=== PATIENT | female | born 1930 | race Caucasian/White ===

== ENCOUNTER 2020-06-21 15:54 | Inpatient (IN) ==
[2020-06-21] MEDS ORDERED: ALBUTEROL HFA 8 GM INHALER INH ONE (16:28)
[2020-06-21] MEDS ORDERED: guaiFENesin 600 MG TABCR PO STA (16:28)
[2020-06-21] MEDS ORDERED: SODIUM CHLORIDE 0.9% 500 ML IV ONE (16:31)
--- NOTE | 2020-06-21 16:52 | XRay Report ---
XR chest 1V portable CLINICAL HISTORY: Chest Pain COMPARISON STUDY: No previous studies for comparison. FINDINGS: Lung volumes are normal. There is no pneumothorax. There is a trace left pleural effusion. Left basilar opacity favors atelectasis. Note is made of moderate cardiomegaly. There is interstitial thickening. Old right rib fracture is incidentally noted. A right hilar prominence. IMPRESSION: 1. Cardiomegaly with interstitial thickening suggestive of pulmonary edema. 2. Trace left pleural effusion with left basilar opacity that favors atelectasis. An infectious proce ss is considered less likely. Radiographic follow-up is recommended. 3. Mild right hilar prominence which is likely due to pulmonary vessels. This can be assessed on foll ow-up chest radiograph. ACT 112: Negative or not required by law. Electronically signed by: Quique Martin M.D. 06/21/2020 4:51 PM
[2020-06-21 16:58] LABS: Basophils # (auto) 0.02 K/uL (0-0.2); Basophils % (auto) 0.2 %; Eosinophils # (auto) 0.14 K/uL (0-0.5); Eosinophils % (auto) 1.3 %; Hematocrit (blood only) 39.8 % (37-47); Hemoglobin 12.9 g/dL (12.0-16.0); Immature Granulocytes # (auto) 0.03 K/uL (0.00-0.02); Immature Granulocytes % (auto) 0.3 %; Lymphocytes # (auto) 1.46 K/uL (1.2-3.4); Lymphocytes % (auto) 13.4 %; Mean Corpuscular Hemoglobin 29.7 pg (25-34); Mean Corpuscular Hgb Conc 32.4 g/dL (32-36); Mean Corpuscular Volume 91.5 fL (80-100); Mean Platelet Volume 10.3 fL (7.4-10.4); Monocytes # (auto) 1.26 K/uL (0.11-0.59); Monocytes % (auto) 11.6 %; Neutrophils # (auto) 7.98 K/uL (1.4-6.5); Neutrophils % (auto) 73.2 %; Platelet Count 255 K/uL (130-400); RDW Coefficient of Variation 14.5 % (11.5-14.5); Red Blood Count 4.35 M/uL (4.2-5.4); White Blood Count 10.89 K/uL (4.8-10.8)
[2020-06-21 17:16] LABS: Alanine Aminotransferase 99 U/L (12-78); Albumin Level 3.2 gm/dl (3.4-5.0); Aspartate Aminotransferase 44 U/L (15-37); BUN Creatinine Ratio 23.1 (10-20); Bilirubin Direct 0.2 mg/dl (0-0.2); Blood Urea Nitrogen 32 mg/dl (7-18); Calcium 8.6 mg/dl (8.5-10.1); Carbon Dioxide 26 mmol/L (21-32); Chloride 113 mmol/L (98-107); Creatinine Clr Calc Pharmacy 25.4 ml/min; Est GFR (African American) 39.5 ml/min; Est GFR (Non-African American) 34.1 ml/min; Glucose 120 mg/dl (70-99); Lipase 78 U/L (73-393); Magnesium 2.3 mg/dl (1.8-2.4); Potassium 4.8 mmol/L (3.5-5.1); Sodium 143 mmol/L (136-145)
[2020-06-21 17:33] LABS: Prothrombin Time 10.6 Seconds (9.0-12.0)
[2020-06-21 17:41] LABS: Albumin Globulin Ratio 1.3 (0.9-2); Alkaline Phosphatase 107 U/L (45-117); Bilirubin,Total 0.5 mg/dl (0.2-1); Globulin 2.5 gm/dl (2.5-4.0); NT Pro B Type Natriuretic Pept > 35000 pg/ml (0-1800); Phosphorus 3.7 mg/dl (2.5-4.9); Total Protein 5.7 gm/dl (6.4-8.2); Troponin I 0.104 ng/ml (0-0.045)
--- NOTE | 2020-06-21 18:43 | Emergency Department Note ---
Impression & Plan CHF (congestive heart failure), Pulmonary edema, Elevated troponin, Transaminitis ED Provider Note NAME: CARMELA RUSS AGE: 89 SEX: F ARRIVES VIA: Walk-In INFORMANT: Patient, ED PROVIDER(S): Todd Wright MD CHIEF COMPLAINT: shortness of breath PLAN: Disposition: Admit MEDICAL DECISION MAKING: The patient is a pleasant 89-year-old woman who presents to the emergency department for worsening shortness of breath and cough over the past couple of weeks seen at [facility] and referred to the emergency department for evaluation. The patient reports that she has not followed with her doctor in a number of years and does not take medications on a regular basis. She denies any objective fevers, nausea, vomiting. She does report some slightly loose stool but no overt diarrhea. She denies any known COVID-19 exposures. On arrival the patient is mildly dyspneic but no acute distress, afebrile with heart in the 100s and vital signs otherwise stable. Her oxygen saturation is >93% on room air with normal respiratory effort. She has scant bilateral lower extremity edema which she does admit is new. EKG demonstrates right bundle branch block without overt acute ischemia. Chest x-ray demonstrates interstitial thickening that is nonspecific. There is trace left pleural effusion and basilar opacity that is nonspecific. WBC 10.8K, nonspecific. H/H and platelets within normal limits. Chemistry without metabolic acidosis. Creatinine 1.3 with BUN/creatinine > 20. Electrolytes without significant abnormality. LFTs slightly elevated AST and ALT 44 and 99, respectively. Troponin is elevated at 0.014. BNP is sign ificantly elevated >35K. COVID-19 PCR was negative. CTA of the chest was negative for PE but does show moderate pulmonary edema and small bilateral pleural effusions. I did perform a limited bedside cardiac ultrasound which did demonstrate evidence of systolic heart failure with dilated LV and moderately reduced EF per MAPSE 7.0mm. Of note, the patient did appear slightly more dyspneic following CT likely related to lying supine for the study despite being placed on oxygen to help her tolerate lying flat. Thus, will trial BiPAP given the patient's increased dyspnea likely related to pulmonary edema. Patient was ordered for Lasix and monitoring of urine output. Patient is agreement with plan for admission for further evaluation and management of new onset CHF. Case was discussed with [place]. Beckett, [facility] [place], who will evaluate the patient for admission. Triage Nursing notes reviewed and agree them. Prior medical records reviewed Vital Signs: reviewed and remarkable for tachycardia. Differential diagnosis: Reactive airway disease, pneumonia, pneumothorax, COPD, CHF, infections, cardiac ischemia, pulmonary embolism, musculoskeletal, gastrointestinal, as well as other pathologies. ER treatment provided: See below. Diagnostics interpreted by me: ECG: Sinus tachycardia, 112 bpm, occasional PVCs, right bundle branch block, no overt ST elevation or depression, QTC 548, QRS 198. Cardiac Monitoring: An order for continuous cardiac monitoring was placed and demonstrated Sinus tachycardia, 112 bpm, occasional PVCs. Laboratory studies: See below Imaging studies: See below Consultation(s): Case was discussed with Dr. Beckett, [facility] [place], who will evaluate the patient for admission. HPI: The patient is a pleasant 89-year-old woman who presents to the emergency department for worsening shortness of breath and cough over the past couple of weeks seen at [facility] and referred to the emergency department for evaluation. The patient reports that she has not followed with her doctor in a number of years and does not take medications on a regular basis. She denies any objective fevers, nausea, vomiting. She does report some slightly loose stool but no overt diarrhea. She denies any known COVID-19 exposures. ROS: See above HPI for pertinent positives & negatives. A total of 10 systems reviewed and were otherwise negative. PAST MEDICAL HISTORY:See Below PAST SURGICAL HISTORY:See Below FAMILY HISTORY:See Below SOCIAL HISTORY:See Below HOME MEDICATIONS:See Below ALLERGIES:See Below VITALS:See Below PHYSICAL EXAMINATION: GENERAL: Awake, alert, fatigued-appearing, in no distress HENT: Normocephalic, atraumatic. Oropharynx with dry mucous membranes and otherwise unremarkable. EYES: Normal conjunctiva. Sclera non-icteric. NECK: Supple. No nuchal rigidity. FROM. No JVD. RESPIRATORY: Diminished breath sounds at the bases with scant intermittent wheeze. CARDIAC: Tachycardic rate, normal rhythm. Extremities warm and well perfused. Pulses equal. ABDOMEN: Soft, non-distended. No tenderness to palpation. No rebound or guard ing. No masses. RECTAL: Deferred. MUSCULOSKELETAL: Chest examination reveals no tenderness. The back is symmetrical on inspection without obvious abnormality. There is no CVA tenderness to palpation. No joint edema. LOWER EXTREMITIES: Calves are equal size bilaterally and non-tender. Scant BLE edema. No discoloration. NEURO: Normal sensorium. No sensory or motor deficits noted. SKIN: No rash or jaundice noted. ED COURSE: Critical Care: I have personally spent greater than 35 minutes of critical care time in the direct management of this patient. This includes bedside care, interpretation of diagnostic studies, and testing, discussion with consultants, patient, and family members, and other required patient management activities. This 35 minutes is in excess of all separately billable procedures. Todd Wright MD Past Med/Surg History Medical History No active medical problems Family History Other Heart disease Social History Smoking Status: Never smoker Hx Alcohol Use: No Hx Substance Use: No Preferred Language: Salvadorean Communication Ability: Effective Rn Case Management Required: No Beliefs That Will Affect Care: None Current Living Situation: Alone Feels Safe at Home: Yes Safety Concerns: Feels Safe At This Time Assistive Devices: Glasses Allergies Allergies Allergy/AdvReac Type Severity Reaction Status Date / Time No Known Allergies Verified 06/21/20 17:37 Home Meds Home Medications Medication Instructions Recorded Confirmed No Known Home Medications 06/21/20 06/21/20 Results & Data (ED) Vital Signs Vital Signs - 24 hr 06/21/20 16:02 06/21/20 16:31 06/21/20 16:46 Temperature 36.7 C Temperature Source Temporal Artery Scan Pulse Rate 116 H Pulse Rate [Right Finger] Pulse Rate from SpO2 Sensor Respiratory Rate 20 Respiratory Effort / Characteristics Non-Labored Non-Labored Spontaneous Respiratory Depth Normal Normal Respiratory Pattern Regular Blood Pressure 139/81 Blood Pressure [Left Arm] Blood Pressure Mean 100 Blood Pressure Mean [Left Arm] Blood Pressure Position [Left Arm] Pulse Oximetry 93 93 Oxygen Delivery Method Room Air Room Air Room Air Fraction of Inspired Oxygen Sepsis Recent Fever Within 48 Hours No Sepsis New/Unexplained Change in Mental Status No Sepsis Action Taken by Nursing No Action Required 06/21/20 17:02 06/21/20 17:15 06/21/20 17:30 Temperature Temperature Source Pulse Rate 111 H 111 H 110 H Pulse Rate [Right Finger] Pulse Rate from SpO2 Sensor 107 H 112 H 109 H Respiratory Rate 26 H 34 H 19 Respiratory Effort / Characteristics Respiratory Depth Respiratory Pattern Blood Pressure Blood Pressure [Left Arm] Blood Pressure Mean Blood Pressure Mean [Left Arm] Blood Pressure Position [Left Arm] Pulse Oximetry 91 94 94 Oxygen Delivery Method Fraction of Inspired Oxygen Sepsis Recent Fever Within 48 Hours Sepsis New/Unexplained Change in Mental Status Sepsis Action Taken by Nursing 06/21/20 17:45 06/21/20 17:59 06/21/20 18:00 Temperature Temperature Source Pulse Rate 108 H 112 H 110 H Pulse Rate [Right Finger] 109 H Pulse Rate from SpO2 Sensor 109 H 112 H 112 H Respiratory Rate 31 H 27 H 34 H Respiratory Effort / Characteristics Non-Labored Spontaneous Respiratory Depth Normal Respiratory Pattern Regular Blood Pressure 166/103 H Blood Pressure [Left Arm] 166/103 H Blood Pressure Mean 124 Blood Pressure Mean [Left Arm] 124 Blood Pressure Position [Left Arm] Sitting Pulse Oximetry 93 95 93 Oxygen Delivery Method Room Air Fraction of Inspired Oxygen Sepsis Recent Fever Within 48 Hours Sepsis New/Unexplained Change in Mental Status Sepsis Action Taken by Nursing 06/21/20 18:15 06/21/20 18:30 06/21/20 18:45 Temperature Temperature Source Pulse Rate 108 H 109 H 110 H Pulse Rate [Right Finger] Pulse Rate from SpO2 Sensor 108 H 109 H 111 H Respiratory Rate 35 H 34 H 30 H Respiratory Effort / Characteristics Respiratory Depth Respiratory Pattern Blood Pressure Blood Pressure [Left Arm] Blood Pressure Mean Blood Pressure Mean [Left Arm] Blood Pressure Position [Left Arm] Pulse Oximetry 96 92 94 Oxygen Delivery Method Fraction of Inspired Oxygen Sepsis Recent Fever Within 48 Hours Sepsis New/Unexplained Change in Mental Status Sepsis Action Taken by Nursing 06/21/20 19:00 06/21/20 19:26 06/21/20 19:28 Temperature Temperature Source Pulse Rate 112 H 110 H Pulse Rate [Right Finger] Pulse Rate from SpO2 Sensor 111 H 109 H 111 H Respiratory Rate 29 H 37 H Respiratory Effort / Characteristics Respiratory Depth Respiratory Pattern Blood Pressure 131/93 Blood Pressure [Left Arm] Blood Pressure Mean 105 Blood Pressure Mean [Left Arm] Blood Pressure Position [Left Arm] Pulse Oximetry 94 99 93 Oxygen Delivery Method Fraction of Inspired Oxygen Sepsis Recent Fever Within 48 Hours Sepsis New/Unexplained Change in Mental Status Sepsis Action Taken by Nursing 06/21/20 19:30 06/21/20 19:31 06/21/20 19:45 Temperature Temperature Source Pulse Rate 109 H 111 H 120 H Pulse Rate [Right Finger] Pulse Rate from SpO2 Sensor 110 H 112 H 120 H Respiratory Rate 40 H 29 H 38 H Respiratory Effort / Characteristics Respiratory Depth Respiratory Pattern Blood Pressure 146/101 H 150/95 H Blood Pressure [Left Arm] Blood Pressure Mean 116 113 Blood Pressure Mean [Left Arm] Blood Pressure Position [Left Arm] Pulse Oximetry 90 92 91 Oxygen Delivery Method Fraction of Inspired Oxygen Sepsis Recent Fever Within 48 Hours Sepsis New/Unexplained Change in Mental Status Sepsis Action Taken by Nursing 06/21/20 19:46 06/21/20 20:00 06/21/20 20:15 Temperature Temperature Source Pulse Rate 117 H 112 H 114 H Pulse Rate [Right Finger] Pulse Rate from SpO2 Sensor 118 H 110 H 108 H Respiratory Rate 35 H 38 H 37 H Respiratory Effort / Characteristics Respiratory Depth Respiratory Pattern Blood Pressure 170/114 H 164/112 H Blood Pressure [Left Arm] Blood Pressure Mean 132 129 Blood Pressure Mean [Left Arm] Blood Pressure Position [Left Arm] Pulse Oximetry 95 97 95 Oxygen Delivery Method Fraction of Inspired Oxygen Sepsis Recent Fever Within 48 Hours Sepsis New/Unexplained Change in Mental Status Sepsis Action Taken by Nursing 06/21/20 20:16 06/21/20 20:30 06/21/20 20:45 Temperature Temperature Source Pulse Rate 111 H 114 H 111 H Pulse Rate [Right Finger] Pulse Rate from SpO2 Sensor 113 H 111 H Respiratory Rate 25 H 37 H 36 H Respiratory Effort / Characteristics Respiratory Depth Respiratory Pattern Blood Pressure 151/92 H 151/92 H Blood Pressure [Left Arm] Blood Pressure Mean 111 111 Blood Pressure Mean [Left Arm] Blood Pressure Position [Left Arm] Pulse Oximetry 96 97 Oxygen Delivery Method Fraction of Inspired Oxygen Sepsis Recent Fever Within 48 Hours Sepsis New/Unexplained Change in Mental Status Sepsis Action Taken by Nursing 06/21/20 20:46 06/21/20 20:49 06/21/20 21:00 Temperature Temperature Source Pulse Rate 111 H 111 H 110 H Pulse Rate [Right Finger] Pulse Rate from SpO2 Sensor 110 H 110 H Respiratory Rate 38 H 31 H 33 H Respiratory Effort / Characteristics Spontaneous Respiratory Depth Normal Respiratory Pattern Tachypnea Blood Pressure 158/106 H Blood Pressure [Left Arm] Blood Pressure Mean 123 Blood Pressure Mean [Left Arm] Blood Pressure Position [Left Arm] Pulse Oximetry 98 98 98 Oxygen Delivery Method Fraction of Inspired Oxygen 30 Sepsis Recent Fever Within 48 Hours Sepsis New/Unexplained Change in Mental Status Sepsis Action Taken by Nursing 06/21/20 21:01 06/21/20 21:15 06/21/20 21:16 Temperature Temperature Source Pulse Rate 110 H 110 H 105 H Pulse Rate [Right Finger] Pulse Rate from SpO2 Sensor 113 H 110 H 109 H Respiratory Rate 33 H 32 H 33 H Respiratory Effort / Characteristics Respiratory Depth Respiratory Pattern Blood Pressure 166/105 H Blood Pressure [Left Arm] Blood Pressure Mean 125 Blood Pressure Mean [Left Arm] Blood Pressure Position [Left Arm] Pulse Oximetry 98 98 97 Oxygen Delivery Method Fraction of Inspired Oxygen Sepsis Recent Fever Within 48 Hours Sepsis New/Unexplained Change in Mental Status Sepsis Action Taken by Nursing 06/21/20 21:30 06/21/20 21:31 06/21/20 21:45 Temperature Temperature Source Pulse Rate 112 H 112 H 114 H Pulse Rate [Right Finger] Pulse Rate from SpO2 Sensor 113 H 112 H 112 H Respiratory Rate 28 H 31 H 29 H Respiratory Effort / Characteristics Respiratory Depth Respiratory Pattern Blood Pressure 167/103 H 163/107 H Blood Pressure [Left Arm] Blood Pressure Mean 124 125 Blood Pressure Mean [Left Arm] Blood Pressure Position [Left Arm] Pulse Oximetry 99 99 98 Oxygen Delivery Method Fraction of Inspired Oxygen Sepsis Recent Fever Within 48 Hours Sepsis New/Unexplained Change in Mental Status Sepsis Action Taken by Nursing 06/21/20 22:00 06/21/20 22:15 06/21/20 22:16 Temperature Temperature Source Pulse Rate 105 H 101 H 101 H Pulse Rate [Right Finger] Pulse Rate from SpO2 Sensor 106 H 102 H 101 H Respiratory Rate 28 H 30 H 31 H Respiratory Effort / Characteristics Respiratory Depth Respiratory Pattern Blood Pressure 155/93 H 135/98 Blood Pressure [Left Arm] Blood Pressure Mean 113 110 Blood Pressure Mean [Left Arm] Blood Pressure Position [Left Arm] Pulse Oximetry 98 97 97 Oxygen Delivery Method Fraction of Inspired Oxygen Sepsis Recent Fever Within 48 Hours Sepsis New/Unexplained Change in Mental Status Sepsis Action Taken by Nursing 06/21/20 22:30 06/21/20 22:31 06/21/20 22:45 Temperature Temperature Source Pulse Rate 99 H 101 H 94 H Pulse Rate [Right Finger] Pulse Rate from SpO2 Sensor 99 H 101 H 93 H Respiratory Rate 30 H 30 H 24 Respiratory Effort / Characteristics Respiratory Depth Respiratory Pattern Blood Pressure 135/91 124/72 Blood Pressure [Left Arm] Blood Pressure Mean 105 89 Blood Pressure Mean [Left Arm] Blood Pressure Position [Left Arm] Pulse Oximetry 97 98 97 Oxygen Delivery Method Fraction of Inspired Oxygen Sepsis Recent Fever Within 48 Hours Sepsis New/Unexplained Change in Mental Status Sepsis Action Taken by Nursing 06/21/20 22:46 06/21/20 23:00 06/21/20 23:01 Temperature Temperature Source Pulse Rate 94 H 92 H 93 H Pulse Rate [Right Finger] Pulse Rate from SpO2 Sensor 94 H 92 H 93 H Respiratory Rate 24 25 H 24 Respiratory Effort / Characteristics Respiratory Depth Respiratory Pattern Blood Pressure 131/72 Blood Pressure [Left Arm] Blood Pressure Mean 91 Blood Pressure Mean [Left Arm] Blood Pressure Position [Left Arm] Pulse Oximetry 97 98 97 Oxygen Delivery Method Fraction of Inspired Oxygen Sepsis Recent Fever Within 48 Hours Sepsis New/Unexplained Change in Mental Status Sepsis Action Taken by Nursing 06/21/20 23:15 06/21/20 23:16 06/21/20 23:30 Temperature Temperature Source Pulse Rate 90 90 88 Pulse Rate [Right Finger] Pulse Rate from SpO2 Sensor 89 90 88 Respiratory Rate 22 23 22 Respiratory Effort / Characteristics Respiratory Depth Respiratory Pattern Blood Pressure 126/80 115/78 Blood Pressure [Left Arm] Blood Pressure Mean 95 90 Blood Pressure Mean [Left Arm] Blood Pressure Position [Left Arm] Pulse Oximetry 98 97 98 Oxygen Delivery Method Fraction of Inspired Oxygen Sepsis Recent Fever Within 48 Hours Sepsis New/Unexplained Change in Mental Status Sepsis Action Taken by Nursing Laboratory Data Attestation: I reviewed the patient's lab results. Result diagrams: 06/21/20 16:50 06/21/20 16:50 Lab Results 06/21/20 06/21/20 06/21/20 Range/Units 16:50 16:50 16:54 WBC 10.89 H (4.8-10.8) K/uL RBC 4.35 (4.2-5.4) M/uL Hgb 12.9 (12.0-16.0) g/dL Hct 39.8 (37-47) % MCV 91.5 (80-100) fL MCH 29.7 (25-34) pg MCHC 32.4 (32-36) g/dL RDW Std Deviation 49.0 H (36.4-46.3) fL RDW Coeff of Aggie 14.5 (11.5-14.5) % Plt Count 255 (130-400) K/uL MPV 10.3 (7.4-10.4) fL Immature Gran % (Auto) 0.3 % Neut % (Auto) 73.2 % Lymph % (Auto) 13.4 % [place] % (Auto) 11.6 % Eos % (Auto) 1.3 % Baso % (Auto) 0.2 % Neut # (Auto) 7.98 H (1.4-6.5) K/uL Lymph # (Auto) 1.46 (1.2-3.4) K/uL [place] # (Auto) 1.26 H (0.11-0.59) K/uL Eos # (Auto) 0.14 (0-0.5) K/uL Baso # (Auto) 0.02 (0-0.2) K/uL Immature Gran # (Auto) 0.03 H (0.00-0.02) K/uL PT (9.0-12.0) Seconds INR (0.9-1.1) Sodium 143 (136-145) mmol/L Potassium 4.8 (3.5-5.1) mmol/L Chloride 113 H (98-107) mmol/L Carbon Dioxide 26 (21-32) mmol/L Anion Gap 4.0 (3-11) BUN 32 H (7-18) mg/dl Creatinine 1.37 H (0.6-1.2) mg/dl Est Cr Clr Drug Dosing 25.4 ml/min Est GFR ( Amer) 39.5 ml/min Est GFR (Non-Af Amer) 34.1 ml/min BUN/Creatinine Ratio 23.1 H (10-20) Glucose 120 H (70-99) mg/dl Calcium 8.6 (8.5-10.1) mg/dl Phosphorus 3.7 (2.5-4.9) mg/dl Magnesium 2.3 (1.8-2.4) mg/dl Total Bilirubin 0.5 (0.2-1) mg/dl Direct Bilirubin 0.2 (0-0.2) mg/dl AST 44 H (15-37) U/L ALT 99 H (12-78) U/L Alkaline Phosphatase 107 (45-117) U/L Troponin I 0.104 H* (0-0.045) ng/ml NT-Pro-B Natriuret Pep > 08244 H (0-1800) pg/ml Total Protein 5.7 L (6.4-8.2) gm/dl Albumin 3.2 L (3.4-5.0) gm/dl Globulin 2.5 (2.5-4.0) gm/dl Albumin/Globulin Ratio 1.3 (0.9-2) Lipase 78 (73-393) U/L TSH 3.300 (0.300-4.500) uIu/ml COVID-19 Eval Order Covid19 at [facility] SARS-CoV-2 (PCR) (Negative) 06/21/20 06/21/20 Range/Units 16:54 17:13 WBC (4.8-10.8) K/uL RBC (4.2-5.4) M/uL Hgb (12.0-16.0) g/dL Hct (37-47) % MCV (80-100) fL MCH (25-34) pg MCHC (32-36) g/dL RDW Std Deviation (36.4-46.3) fL RDW Coeff of Aggie (11.5-14.5) % Plt Count (130-400) K/uL MPV (7.4-10.4) fL Immature Gran % (Auto) % Neut % (Auto) % Lymph % (Auto) % [place] % (Auto) % Eos % (Auto) % Baso % (Auto) % Neut # (Auto) (1.4-6.5) K/uL Lymph # (Auto) (1.2-3.4) K/uL [place] # (Auto) (0.11-0.59) K/uL Eos # (Auto) (0-0.5) K/uL Baso # (Auto) (0-0.2) K/uL Immature Gran # (Auto) (0.00-0.02) K/uL PT 10.6 (9.0-12.0) Seconds INR 1.0 (0.9-1.1) Sodium (136-145) mmol/L Potassium (3.5-5.1) mmol/L Chloride (98-107) mmol/L Carbon Dioxide (21-32) mmol/L Anion Gap (3-11) BUN (7-18) mg/dl Creatinine (0.6-1.2) mg/dl Est Cr Clr Drug Dosing ml/min Est GFR ( Amer) ml/min Est GFR (Non-Af Amer) ml/min BUN/Creatinine Ratio (10-20) Glucose (70-99) mg/dl Calcium (8.5-10.1) mg/dl Phosphorus (2.5-4.9) mg/dl Magnesium (1.8-2.4) mg/dl Total Bilirubin (0.2-1) mg/dl Direct Bilirubin (0-0.2) mg/dl AST (15-37) U/L ALT (12-78) U/L Alkaline Phosphatase (45-117) U/L Troponin I (0-0.045) ng/ml NT-Pro-B Natriuret Pep (0-1800) pg/ml Total Protein (6.4-8.2) gm/dl Albumin (3.4-5.0) gm/dl Globulin (2.5-4.0) gm/dl Albumin/Globulin Ratio (0.9-2) Lipase (73-393) U/L TSH (0.300-4.500) uIu/ml COVID-19 Eval Order SARS-CoV-2 (PCR) NEGATIVE (Negative) Administered Medications Discontinued Medications Albuterol (Albuterol Hfa 8 Gm Inhaler) 2 puffs INH NOW ONE Stop: 06/21/20 16:29 Last Admin: 06/21/20 17:49 Dose: 2 puffs Documented by: [id number] Furosemide (Furosemide 40 Mg/4 Ml Vial) 20 mg IV NOW STA Stop: 06/21/20 20:08 Last Admin: 06/21/20 20:20 Dose: 20 mg Documented by: [id number] Guaifenesin (Guaifenesin 600 Mg Tabcr) 600 mg PO NOW STA Stop: 06/21/20 16:29 Last Admin: 06/21/20 17:50 Dose: 600 mg Documented by: [id number] Sodium Chloride (Nss) 500 mls @ 999 mls/hr IV .Q31M ONE Stop: 06/21/20 17:01 Last Infusion: 06/21/20 19:36 Dose: 0 mls/hr Documented by: [id number] Admin: 06/21/20 17:50 Dose: 999 mls/hr Documented by: [id number] Ioversol (Optiray 350 500ml) 108 ml IV ONCE ONE Stop: 06/21/20 19:22 Last Admin: 06/21/20 19:21 Dose: 108 ml Documented by: [id number] Imaging Data Radiologist's Impression: Chest X-Ray 06/21/20 16:30 XR chest 1V portable CLINICAL HISTORY: Chest Pain COMPARISON STUDY: No previous studies for comparison. FINDINGS: Lung volumes are normal. There is no pneumothorax. There is a trace left pleural effusion. Left basilar opacity favors atelectasis. Note is made of moderate cardiomegaly. There is interstitial thickening. Old right rib fracture is incidentally noted. A right hilar prominence. IMPRESSION: 1. Cardiomegaly with interstitial thickening suggestive of pulmonary edema. 2. Trace left pleural effusion with left basilar opacity that favors atelectasis. An infectious process is considered less likely. Radiographic follow-up is recommended. 3. Mild right hilar prominence which is likely due to pulmonary vessels. This can be assessed on follow-up chest radiograph. ACT 112: Negative or not required by law. Electronically signed by: Quique Martin M.D. 06/21/2020 4:51 PM Chest CTA 06/21/20 18:35 CT ANGIOGRAPHY OF THE CHEST, PULMONARY EMBOLUS PROTOCOL CLINICAL HISTORY: Shortness of breath. Evaluate for pulmonary embolus. COMPARISON STUDY: Chest radiograph performed earlier today. TECHNIQUE: Following IV administration of 108 mL of Optiray, helical axial images of the chest were obtained utilizing the pulmonary embolus protocol. Maximal intensity projections and sagittal and coronal reformats were viewed on an independent 3D workstation. IV contrast was administered without complication. Automated exposure control was utilized for the study. A dose lowering technique was utilized adhering to the principles of ALARA. CT DOSE: 410.08 mGy.cm FINDINGS: No pulmonary emboli are identified. Moderate cardiomegaly is noted. There is mitral annular and aortic valvular calcification. Small left and trace right pleural effusions are noted. Bilateral lower lobe opacities favor atelectasis. There is no pneumothorax. Interlobular septal thickening represents pulmonary edema. There are additional groundglass opacities. Mildly enlarged mediastinal lymph nodes are noted. There is a cyst suspected sebaceous cyst of the chest wall. Incidental note is made of several suspected thyroid nodules that measure up to 2.2 cm. There is reflux of contrast into the IVC and hepatic veins. IMPRESSION: 1. No pulmonary emboli identified. 2. Findings consistent with moderate pulmonary edema. Small left and trace right pleural effusions. 3. Cardiomegaly. 4. Several mildly enlarged mediastinal lymph nodes which are nonspecific. ACT 112: Negative or not required by law. Electronically signed by: Quique Martin M.D. 06/21/2020 8:04 PM Discharge Plan Visit Data Chief Complaint: Shortness of Breath/Dyspnea Stated Complaint: SHORTNESS OF BREATH ED Provider: Todd Wright Discharge Problem: CHF (congestive heart failure), Pulmonary edema, Elevated troponin, Transaminitis Patient Disposition: Admitted As Inpatient Discharge Instructions Interventions: ED Discharge Assessment Last Done: 06/22/20 01:22 Discharge Problem: CHF (congestive heart failure) Qualifiers: Heart failure type: unspecified Heart failure chronicity: acute Qualified Code(s): I50.9 - Heart failure, unspecified Pulmonary edema Qualifiers: Chronicity: acute Qualified Code(s): J81.0 - Acute pulmonary edema
[2020-06-21] MEDS ORDERED: OPTIRAY 350 500ml IV ONE (19:21)
--- NOTE | 2020-06-21 20:05 | CT Scan Report ---
CT ANGIOGRAPHY OF THE CHEST, PULMONARY EMBOLUS PROTOCOL CLINICAL HISTORY: Shortness of breath. Evaluate for pulmonary embolus. COMPARISON STUDY: Chest radiograph performed earlier today. TECHNIQUE: Following IV administration of 108 mL of Optiray, helical axial images of the chest were o btained utilizing the pulmonary embolus protocol. Maximal intensity projections and sagittal and cor onal reformats were viewed on an independent 3D workstation. IV contrast was administered without co mplication. Automated exposure control was utilized for the study. A dose lowering technique was ut ilized adhering to the principles of ALARA. CT DOSE: 410.08 mGy.cm FINDINGS: No pulmonary emboli are identified. Moderate cardiomegaly is noted. There is mitral annula r and aortic valvular calcification. Small left and trace right pleural effusions are noted. Bilatera l lower lobe opacities favor atelectasis. There is no pneumothorax. Interlobular septal thickening re presents pulmonary edema. There are additional groundglass opacities. Mildly enlarged mediastinal lym ph nodes are noted. There is a cyst suspected sebaceous cyst of the chest wall. Incidental note is ma de of several suspected thyroid nodules that measure up to 2.2 cm. There is reflux of contrast into t he IVC and hepatic veins. IMPRESSION: 1. No pulmonary emboli identified. 2. Findings consistent with moderate pulmonary edema. Small left and trace right pleural effusions. 3. Cardiomegaly. 4. Several mildly enlarged mediastinal lymph nodes which are nonspecific. ACT 112: Negative or not required by law. Electronically signed by: Quique Martin M.D. 06/21/2020 8:04 PM
[2020-06-21] MEDS ORDERED: FUROSEMIDE 40 MG/4 ML VIAL IV STA (20:07)
--- NOTE | 2020-06-21 22:59 | History & Physical Report ---
Date of Service June 21, 2020 Assessment & Plan (1) Dyspnea on exertion: Mrs. Levy is an otherwise healthy 89 yo woman who presented to the ED with new onset dyspnea on exertion, wet cough, and orthopnea. - etiology: new onset congestive heart failure > cardiac ischemia. Hgb normal, anemia ruled out. - physical exam consistent with volume overload, elevated BNP, and Chest CT showing moderate pulmonary edema concerning for new onset CHF. Dietary history is also suggestive of recent sodium load - elevated troponin favors cardiac ischemia etiology (although this is a sensitive, but non-specific marker; it is certainly plausible new onset CHF provoked an elevated troponin) - diereses with Lasix 40mg, IV. trend BMP to assess electrolytes. Resting ECHO ordered. Continue BiPAP prn (2) Pulmonary edema: - visualized on Chest CTA - likely secondary to new onset CHF as above - lasix and BiPAP as above (3) Elevated troponin: - level 0.1 on admission. Trend. - EKG without signs of ischemia - patient denied any chest pain on exam - echo ordered for am (4) Transaminitis: - ALT at 99, AST at 44 - trend levels - patient denied Etoh use. Suspect secondary to hepatic vascular congestion from new onset CHF. Dieresis as above - if levels fail to improve with dieresis, consider further work up (5) Elevated serum creatinine: - baseline Cr unknown - Cr 1.74 on arrival. BUN at 32. Ratio of 23. - suspect pre-renal etiology due to lack of renal perfusion (in the setting of new onset CHF) - trend BMP Diet: Low sodium, fluid restrict DVT ppx: Heparin 5000 units SQ BID Dispo: Med/Surg with tele Code: DNR/DNI, I confirmed with patient History of Present Illness Primary Care Provider: [facility] Mrs. Levy is an otherwise healthy 89 yo woman who was referred to the [facility] Emergency Department by a provider at a local [facility] clinic, where she initially presented earlier today for evaluation dyspnea on exertion. Mrs. Levy states for the past several weeks, she has noticed she has become winded when walking - a notable change from her baseline. She denies any associated chest pain. She has also developed a wet cough, but denies any general malaise, fevers/chills, sore throat, or GI symptoms. When asked if her symptoms are positional, she admits to becoming uncomfortable when laying flat. She has been sleeping propped up for the past several weeks. When discussing dietary habits, she says she occasionally cooks with salt, although she never adds salt to her food after it is made. She does consume canned soup, rafaela sauce in a jar, bottled salad dressings, and [place]on baloney. Yesterday, she ordered two supreme tacos from [employer] for lunch. She has no history of underlying cardiac or pulmonary disease. She followed with a family physician in the past, but has not been seen by a doctor in several years. She takes no medications. Family History: Sister: CHF, stroke. Brother: CHF, [place] Social Hx: No tobacco use in lifetime. No Etoh use. She lives at the [facility]. Closest family appears to be niece (who lives in the [place] area). In the ED, patient was afebrile and mildly tachycardic. Her WBC was mildly elevated to 10.8 with neutrophil predom. Her Hgb was normal. Electrolytes were normal. Creatinine 1.72 (baseline unknown), BUN at 32. Trop elevated to 0.1. BNP elevated > 35,000. Lipase not elevated. ALT at 99, AST at 44. EKG showing no evidence of acute ST segment changes. Chest CTA showing no evidence of PE; moderate pulmonary edema and cardiomegaly. She was given 500cc normal saline bolus, followed by 20mg IV lasix. Patient was placed on BiPAP Allergies Allergy/AdvReac Type Severity Reaction Status Date / Time No Known Allergies Verified 06/21/20 17:37 Home Medications Medication Instructions Recorded Confirmed Type No Known Home Medications 06/21/20 06/21/20 History Past Med/Surg History Medical History No active medical problems Family History Other Heart disease Social History Smoking Status: Never smoker Hx Alcohol Use: No Hx Substance Use: No Preferred Language: Slovak Communication Ability: Effective Brass Polisher Required: No Beliefs That Will Affect Care: None marital status: Single Current Living Situation: Alone Feels Safe at Home: Yes Safety Concerns: Feels Safe At This Time Assistive Devices: Glasses Review of Systems Respiratory: + cough and + dyspnea on exertion Genitourinary: no dysuria Physical Exam Constitutional: WD/WN, vitals as above cooperative; no acute distress Eyes: + anicteric sclerae ENMT: external ear and nose normal, oropharynx normal Neck: normal visual inspection and trachea midline Respiratory: normal respiratory effort and + cough; no respiratory distress and no labored breathing Auscultation: + rales (bilateral bases); no wheezes Cardiovascular: Rate/Rhythm: regular rate and regular rhythm Heart Sounds: normal S1 and normal S2 Vessels: + JVD Extremities: + pedal edema Gastrointestinal (Abdomen): normal bowel sounds, soft, nontender, no hepatosplenomegaly Skin: no rashes, warm and dry Psychiatric: A+Ox3, euthymic affect Genitourinary: Pure Wick catheter in place Results & Data Results & Data ([facility]) Vital Signs (Past 12 Hours) Vital Signs Temp Pulse Pulse Resp BP BP Pulse Ox 06/21/20 22:31 101 H 30 H 98 06/21/20 22:30 99 H 30 H 135/91 97 06/21/20 22:16 101 H 31 H 97 06/21/20 22:15 101 H 30 H 135/98 97 06/21/20 22:00 105 H 28 H 155/93 H 98 06/21/20 21:45 114 H 29 H 163/107 H 98 06/21/20 21:31 112 H 31 H 99 06/21/20 21:30 112 H 28 H 167/103 H 99 06/21/20 21:16 105 H 33 H 97 06/21/20 21:15 110 H 32 H 166/105 H 98 06/21/20 21:01 110 H 33 H 98 06/21/20 21:00 110 H 33 H 158/106 H 98 06/21/20 20:49 111 H 31 H 98 06/21/20 20:46 111 H 38 H 98 06/21/20 20:45 111 H 36 H 151/92 H 97 06/21/20 20:30 114 H 37 H 151/92 H 06/21/20 20:16 111 H 25 H 96 06/21/20 20:15 114 H 37 H 164/112 H 95 06/21/20 20:00 112 H 38 H 170/114 H 97 06/21/20 19:46 117 H 35 H 95 06/21/20 19:45 120 H 38 H 150/95 H 91 06/21/20 19:31 111 H 29 H 92 06/21/20 19:30 109 H 40 H 146/101 H 90 06/21/20 19:28 110 H 37 H 131/93 93 06/21/20 19:26 99 06/21/20 19:00 112 H 29 H 94 06/21/20 18:45 110 H 30 H 94 06/21/20 18:30 109 H 34 H 92 06/21/20 18:15 108 H 35 H 96 06/21/20 18:00 110 H 109 H 34 H 166/103 H 93 06/21/20 17:59 112 H 27 H 166/103 H 95 06/21/20 17:45 108 H 31 H 93 06/21/20 17:30 110 H 19 94 06/21/20 17:15 111 H 34 H 94 06/21/20 17:02 111 H 26 H 91 06/21/20 16:31 93 06/21/20 16:02 36.7 C 116 H 20 139/81 93 Supervising Physician Co-Signing Physician Notes Attending addendum: I have physically seen this patient, have supervised the medical residents activities, and agree with the H&P unless as otherwise noted. Assessment and Plan: Elevated troponin/new onset CHF/hepatic congestion- The patient will be admitted to telemetry for serial cardiac enzymes, serial EKG's, cardiac rhythm monitoring and a 2-D echocardiogram with Dopplers. Troponin 0.104, BNP greater than 35,000, AST 44 and ALT 99. Received initial dose of Lasix 20 mg IV from the ED, will give additional 40 mg IV now. Follow serial BMP and magnesium levels Consult cardiology dietary instructions regarding appropriate sodium intake Mild renal insufficiency- Creatinine 1.37 upon admission May be secondary to decreased forward flow Follow laboratory serially as noted above Abnormal LFTs- Can suspect secondary to hepatic congestion Follow serially Remaining orders and notations as noted Resident Activity Tracking Resident Involvement: Resident Care Provided Care Provided: Adult Hospital Medicine
[2020-06-22] MEDS ORDERED: ONDANSETRON INJ 2 MG/ML 2 ML VIAL IV PRN (01:33)
[2020-06-22] MEDS ORDERED: FUROSEMIDE 40 MG/4 ML VIAL IV STA (01:33)
[2020-06-22] MEDS ORDERED: MELATONIN 3 MG TAB PO PRN (02:11)
[2020-06-22 02:42] LABS: Basophils # (auto) 0.02 K/uL (0-0.2); Basophils % (auto) 0.2 %; Eosinophils # (auto) 0.14 K/uL (0-0.5); Eosinophils % (auto) 1.4 %; Hematocrit (blood only) 43.3 % (37-47); Hemoglobin 14.1 g/dL (12.0-16.0); Immature Granulocytes # (auto) 0.03 K/uL (0.00-0.02); Immature Granulocytes % (auto) 0.3 %; Lymphocytes # (auto) 1.37 K/uL (1.2-3.4); Lymphocytes % (auto) 13.6 %; Mean Corpuscular Hemoglobin 29.7 pg (25-34); Mean Corpuscular Hgb Conc 32.6 g/dL (32-36); Mean Corpuscular Volume 91.4 fL (80-100); Mean Platelet Volume 9.9 fL (7.4-10.4); Monocytes # (auto) 0.79 K/uL (0.11-0.59); Monocytes % (auto) 7.8 %; Neutrophils # (auto) 7.74 K/uL (1.4-6.5); Neutrophils % (auto) 76.7 %; Platelet Count 231 K/uL (130-400); RDW Coefficient of Variation 14.5 % (11.5-14.5); RDW Standard Deviation 49.1 fL (36.4-46.3); Red Blood Count 4.74 M/uL (4.2-5.4); White Blood Count 10.09 K/uL (4.8-10.8)
[2020-06-22 03:42] LABS: Albumin Globulin Ratio 1.1 (0.9-2); Albumin Level 3.3 gm/dl (3.4-5.0); BUN Creatinine Ratio 21.2 (10-20); Bilirubin,Total 0.9 mg/dl (0.2-1); Calcium 8.5 mg/dl (8.5-10.1); Creatinine Clr Calc Pharmacy 28.9 ml/min; Est GFR (African American) 45.9 ml/min; Est GFR (Non-African American) 39.6 ml/min; Globulin 2.9 gm/dl (2.5-4.0); Potassium 3.9 mmol/L (3.5-5.1); Total Protein 6.2 gm/dl (6.4-8.2)
[2020-06-22] MEDS ORDERED: FUROSEMIDE 40 MG/4 ML VIAL IV ONE (04:26)
--- NOTE | 2020-06-22 06:55 | Hospitalist Progress Note ---
Date of Service June 22, 2020 Assessment & Plan (1) Dyspnea on exertion: Loly Levy is an 89 y/ F from [place] at [facility] w/ no significant PMHx who presented several wks of THACKER and orthopnea likely secondary to new-onset CHF exacerbation. Still has new O2 requirement, but is clinically improving and stable. acute hypoxic respiratory failure 2/2 acute diastolic CHF exacerbation - 06/22 TTE: LV systolic function is moderate to severely reduced. Grade II diastolic dysfunction. Mildly dilated L atrium. Severe calcific aortic stenosis. Moderate MR. - 06/21 chest CTA: No pulmonary emboli identified. Findings consistent with moderate pulmonary edema. Small left and trace right pleural effusions. Cardiomegaly. - BNP >35k on admission - CHF more likely than ischemic cardiac event. considered dietary precipitation - physical exam on admission consistent with volume overload, elevated BNP, and Chest CT showing moderate pulmonary edema concerning for new onset CHF. Dietary history is also suggestive of recent sodium load - elevated troponin favors cardiac ischemia etiology (although this is a sensitive, but non-specific marker; it is certainly plausible new onset CHF provoked an elevated troponin) - diuresed w/ 20mg IV Lasix evening of 06/21, 40mg IV Lasix at 0431 on 06/22 and 40mg IV Lasix at 1211 on 06/22. - Patient reports improvement on 06/22. She denied SOB when she was on room air while eating a meal. - 06/22 exam had mild crackles on attending exam. Trace LE edema at shins. Per patient, her LE edema had improved significantly compared to at admission. - weight 66.1kg 06/21 -> 66.8kg (06/22 0120AM). This was prior to the 2 doses of 40mg IV Lasix. - Cumulative 1580mL in. 2800mL out. Net -1.2L. - Lasix 40mg IV BID ordered. - daily BMPs severe aortic stenosis, moderate mitral regurgitation - per echo - severe noted. will first attempt diuresis via lasix and monitor clinically. likely outpt f/u for , unless symptomatically requires intervention mild muscle cramps - 06/22 PM - etiology most likely from fluid shifts 2/2 diuresis. patient noted her LE edema decreased significantly - K 4.8->3.9 (2AM on 06/22). Patient received 40mg IV Lasix at 0431 and another 40mg IV Lasix at 1211. Did not recheck labs in PM because cramping resolved and was mild. Unlikely to have been symptomatic from hypoK when AM K was at 3.9. elevated troponin, likely from demand ischemia - trop: 0.1->0.112->0.104, since peaked - EKG without signs of ischemia - patient denied any chest pain on exam - echo as above transaminitis - at admission: ALT at 99, AST at 44, ~unchanged on 06/22 - patient denied Etoh use. Suspect secondary to hepatic vascular congestion from new onset CHF. Dieresis as above - if levels fail to improve with dieresis, consider further work up - daily CMP elevated serum creatinine - baseline Cr unknown - Cr 1.37 on arrival. 1.21 on 06/22 - suspect pre-renal etiology due to lack of renal perfusion (in the setting of new onset CHF) - trend BMP Diet: Low sodium, fluid restrict DVT ppx: Heparin 5000 units SQ BID Dispo: Med/Surg with tele Code: DNR/DNI (2) Pulmonary edema: (3) Elevated troponin: (4) Transaminitis: (5) Elevated serum creatinine: (6) Diastolic CHF: (7) Acute exacerbation of CHF (congestive heart failure): (8) Severe aortic stenosis by prior echocardiogram: (9) Moderate mitral regurgitation by prior echocardiography: (10) Muscle cramping: Admission and Anticipated Discharge Date Admission Date: June 21, 2020 Supervising Physician Co-Signing Physician Notes I personally examined the patient and verified all graham points of history and exam, discussed case, and agree with decision making with Dr Acuna. Feeling better and breathing better. No other new complaints. Vitals noted, in general she is awake and alert pleasant no distress. Sitting in a chair on room air, HEENT normocephalic atraumatic mucous membranes moist. Lungs show diminished air entry bibasilar with faint rales otherwise clear, no accessory muscle use good effort. Skin shows no rashes, no pallor or icterus. No focal neuro deficits. Acute hypoxic respiratory failure/respiratory distressseems to all be due to pulmonary edema, which appears to be acute CHF currently undefined. Continue to diurese, echo pending, manage cardiomyopathy as warranted once echo is complete. Educated on sodium restrictionshe seems to have had very liberal sodium intake leading to the fluid retention regardless of her heart function. Otherwise as above. Subjective Currently is comfortable. Wearing bipap since ~3am. No chest pain, abd pain, cervantes, dizzi. No recent cough. Update ~noon during rounds: Patient has been on room air since eating and is denying any SOB. Review of Systems Review of Systems: Constitutional: Denies fever, chills Cardiovascular: Denies chest pain, palpitations Respiratory: Denies shortness of breath at rest. Gastrointestinal: Denies abdominal pain, nausea, vomiting, Genitourinary: Denies urinary symptoms including dysuria Musculoskeletal: Denies weakness Neurological: Denies headache, numbness, tingling, focal weakness Physical Exam Physical Exam: General: Grossly A&O. NAD. Cooperative. Comfortable. HEENT: Atraumatic, normocephalic. EOMI. Pulm: CTAB. -wheezes, -rales, -rhonchi. Wearing Bipap. Per attending exam, faint bibasilar rales w/ diminished air entry. Cardiac: RRR, -mrg. Trace bilateral LE edema at shins. Abdominal: Nontender, nondistended, soft. Results & Data Results & Data ([facility]) Vital Signs (Past 12 Hours) Vital Signs Temp Pulse Pulse Resp BP BP Pulse Ox 06/22/20 05:03 102 H 06/22/20 04:08 23 95 06/22/20 03:00 36.3 C L 95 H 20 114/72 99 06/22/20 01:34 102 H 06/22/20 01:20 36.6 C 100 H 16 144/90 H 97 06/22/20 01:01 96 H 28 H 98 06/22/20 01:00 97 H 28 H 134/89 98 06/22/20 00:57 98 H 28 H 145/88 H 98 06/22/20 00:46 98 H 26 H 98 06/22/20 00:45 98 H 28 H 157/103 H 98 06/22/20 00:30 97 H 27 H 151/98 H 99 06/22/20 00:15 92 H 27 H 144/82 H 98 06/22/20 00:01 86 22 98 06/22/20 00:00 87 21 122/73 98 06/21/20 23:46 91 H 23 98 06/21/20 23:45 90 24 125/82 98 06/21/20 23:30 88 22 115/78 98 06/21/20 23:16 90 23 97 06/21/20 23:15 90 22 126/80 98 06/21/20 23:01 93 H 24 97 06/21/20 23:00 92 H 25 H 131/72 98 06/21/20 22:46 94 H 24 97 06/21/20 22:45 94 H 24 124/72 97 06/21/20 22:31 101 H 30 H 98 06/21/20 22:30 99 H 30 H 135/91 97 06/21/20 22:16 101 H 31 H 97 06/21/20 22:15 101 H 30 H 135/98 97 06/21/20 22:00 105 H 28 H 155/93 H 98 06/21/20 21:45 114 H 29 H 163/107 H 98 06/21/20 21:31 112 H 31 H 99 06/21/20 21:30 112 H 28 H 167/103 H 99 06/21/20 21:16 105 H 33 H 97 06/21/20 21:15 110 H 32 H 166/105 H 98 06/21/20 21:01 110 H 33 H 98 06/21/20 21:00 110 H 33 H 158/106 H 98 06/21/20 20:49 111 H 31 H 98 06/21/20 20:46 111 H 38 H 98 06/21/20 20:45 111 H 36 H 151/92 H 97 06/21/20 20:30 114 H 37 H 151/92 H 06/21/20 20:16 111 H 25 H 96 06/21/20 20:15 114 H 37 H 164/112 H 95 06/21/20 20:00 112 H 38 H 170/114 H 97 06/21/20 19:46 117 H 35 H 95 06/21/20 19:45 120 H 38 H 150/95 H 91 06/21/20 19:31 111 H 29 H 92 06/21/20 19:30 109 H 40 H 146/101 H 90 06/21/20 19:28 110 H 37 H 131/93 93 06/21/20 19:26 99 06/21/20 19:00 112 H 29 H 94 Resident Activity Tracking Resident Involvement: Resident Care Provided Care Provided: Adult Hospital Medicine (1) Pulmonary edema Chronicity: acute Qualified Code(s): J81.0 - Acute pulmonary edema
[2020-06-22] MEDS: HEPARIN SOD 5,000 UNIT/0.5 ML VIAL SQ SCH ×2 (08:56→21:57)
[2020-06-22] MEDS ORDERED: FUROSEMIDE 40 MG in SYRINGE 0 ML IV ONE (11:21)
--- NOTE | 2020-06-22 12:17 | XCELERA ---
[id number]
--- NOTE | 2020-06-22 16:25 | Electrocardiogram Report ---
Test Reason : Blood Pressure : / mmHG Vent. Rate : 112 BPM Atrial Rate : 112 BPM P-R Int : 096 ms QRS Dur : 198 ms QT Int : 402 ms P-R-T Axes : 000 001 -48 degrees QTc Int : 548 ms Poor data quality, interpretation may be adversely affected Sinus tachycardia with occasional Premature ventricular complexes Right bundle branch block Possible Lateral infarct , age undetermined Abnormal ECG When compared with ECG of 14-JUL-2011 09:48, Premature ventricular complexes are now Present Right bundle branch block is now Present Confirmed by Tucker Wilde ([id number]) on 06/22/2020 4:24:50 PM Referred By: [facility] Confirmed By:James Wilde
--- NOTE | 2020-06-22 16:47 | Billing Data ---
Date of Service June 22, 2020 Coding Level of Care Code 10258 Subseq Hosp Care Lvl 3
[2020-06-22] MEDS ORDERED: carvediloL 3.125 MG TAB PO ONE (17:17)
--- NOTE | 2020-06-22 19:36 | Billing Data ---
Date of Service June 22, 2020 Coding Level of Care Code 07243 Initial Inpt Care Lvl 3
[2020-06-22] MEDS: SACUBITRIL-VALSARTAN 24-26 MG TAB PO SCH (21:56)
[2020-06-23 05:46] LABS: Basophils # (auto) 0.01 K/uL (0-0.2); Basophils % (auto) 0.1 %; Eosinophils # (auto) 0.26 K/uL (0-0.5); Eosinophils % (auto) 2.6 %; Hematocrit (blood only) 40.1 % (37-47); Hemoglobin 13.1 g/dL (12.0-16.0); Immature Granulocytes # (auto) 0.03 K/uL (0.00-0.02); Immature Granulocytes % (auto) 0.3 %; Lymphocytes # (auto) 1.44 K/uL (1.2-3.4); Lymphocytes % (auto) 14.2 %; Mean Corpuscular Hemoglobin 29.7 pg (25-34); Mean Corpuscular Hgb Conc 32.7 g/dL (32-36); Mean Corpuscular Volume 90.9 fL (80-100); Mean Platelet Volume 10.2 fL (7.4-10.4); Monocytes # (auto) 1.16 K/uL (0.11-0.59); Monocytes % (auto) 11.5 %; Neutrophils # (auto) 7.23 K/uL (1.4-6.5); Neutrophils % (auto) 71.3 %; Platelet Count 228 K/uL (130-400); RDW Coefficient of Variation 14.5 % (11.5-14.5); RDW Standard Deviation 48.5 fL (36.4-46.3); Red Blood Count 4.41 M/uL (4.2-5.4); White Blood Count 10.13 K/uL (4.8-10.8)
[2020-06-23 06:19] LABS: Albumin Globulin Ratio 1.1 (0.9-2); Albumin Level 2.8 gm/dl (3.4-5.0); BUN Creatinine Ratio 26.9 (10-20); Bilirubin,Total 0.8 mg/dl (0.2-1); Calcium 8.3 mg/dl (8.5-10.1); Creatinine Clr Calc Pharmacy 35.1 ml/min; Est GFR (African American) 65.7 ml/min; Est GFR (Non-African American) 56.7 ml/min; Globulin 2.5 gm/dl (2.5-4.0); Total Protein 5.3 gm/dl (6.4-8.2)
--- NOTE | 2020-06-23 06:53 | Hospitalist Progress Note ---
Date of Service June 23, 2020 Assessment & Plan (1) Dyspnea on exertion: Loly Levy is an 89 y/ F from [place] at [facility] w/ no significant PMHx who presented several wks of THACKER and orthopnea likely secondary to new-onset CHF exacerbation. Still has new O2 requirement, but is clinically improving and stable. acute hypoxic respiratory failure 2/2 acute diastolic CHF exacerbation - 06/22 TTE: LV systolic function is moderate to severely reduced. Grade II diastolic dysfunction. Mildly dilated L atrium. Severe calcific aortic stenosis. Moderate MR. - 06/21 chest CTA: No pulmonary emboli identified. Findings consistent with moderate pulmonary edema. Small left and trace right pleural effusions. Cardiomegaly. - BNP >35k on admission - CHF more likely than ischemic cardiac event. considered dietary precipitation - physical exam on admission consistent with volume overload, elevated BNP, and Chest CT showing moderate pulmonary edema concerning for new onset CHF. Dietary history is also suggestive of recent sodium load - elevated troponin favors cardiac ischemia etiology (although this is a sensitive, but non-specific marker; it is certainly plausible new onset CHF provoked an elevated troponin) - diuresed w/ 20mg IV Lasix evening of 06/21, 40mg IV Lasix at 0431 on 06/22 and 40mg IV Lasix at 1211 on 06/22. - Patient reports improvement on 06/22. She denied SOB when she was on room air while eating a meal. - 06/23: 24 hrs 1220 in 800 out. cumulative 1.8L in 2.8L out. 66.1kg at admission ->61.8kg 06/23. clinically improving. - continue Lasix 40 BID, but monitor daily regarding when to decrease - daily BMPs severe aortic stenosis, moderate mitral regurgitation - per echo - severe noted. will first attempt diuresis via lasix and monitor clinically. likely outpt f/u for , unless symptomatically requires intervention - cardiology consulted hypokalemia - K 3.0 (06/22), 40meq PO repletion ordered mild muscle cramps, resolved - 06/22 PM onset, since resolved - may be secondary to fluid shifts from diuresis vs hypokalemia (less likely) elevated troponin, likely from demand ischemia - trop: 0.1->0.112->0.104, since peaked - EKG without signs of ischemia - patient denied any chest pain on exam - echo as above transaminitis, resolved - at admission: ALT at 99, AST at 44, ~unchanged on 06/22 - Suspect secondary to hepatic vascular congestion from new onset CHF. Dieresis as above elevated serum creatinine, improving - baseline Cr unknown - Cr 1.37 on arrival. 0.9 on 06/23 - suspect pre-renal etiology due to lack of renal perfusion (in the setting of new onset CHF) - trend BMP Diet: Low sodium, fluid restrict DVT ppx: Heparin 5000 units SQ BID Dispo: Med/Surg with tele Code: DNR/DNI (2) Pulmonary edema: (3) Elevated troponin: (4) Transaminitis: (5) Elevated serum creatinine: (6) Diastolic CHF: (7) Acute exacerbation of CHF (congestive heart failure): (8) Severe aortic stenosis by prior echocardiogram: (9) Moderate mitral regurgitation by prior echocardiography: (10) Muscle cramping: Admission and Anticipated Discharge Date Admission Date: June 21, 2020 Supervising Physician Co-Signing Physician Notes I personally examined the patient and verified all graham points of history and exam, discussed case, and agree with decision making with Dr Acuna feeling better breathing better. discussed echo and possible benefit from invasive w/u and ongoing med management. she relates that with her renea and life views, she would prefer to not have much done and that whaever happens, happens. vitals noted nad heent nc at mmm lungs w faint basilar rales better than yesterday but still present no rhonchi no wheeze good effort no accessory muscles acute on chronic mixed CHF -- severe and also HFrEF -- possibly/probably from myocardial fatigue from , but also can't r/o ischemic cardiomyopathy. she does not want invasive w/u - discussed that further w/u and treatment actually could be quite helpful and tried to impart that her fatalism of "whatever will be, will be" relate to things that do not need to be, but while understanding my point of view, she still did not want further w/u and minimal treatment. discussed if this is the case that she would definitely need to be strict w Na to avoid pulmonary edema - she again reiterated that she doesn't use the salt shaker much --> emphasized to her yet again that typically Na in foods is not from salt shaker but from sodium already there - citing taco mello, soups, etc as examples of foods loaded w sodium. diurese further for now. cardiology eval just to discuss with her further possible benefits of ongoing w/u and treatment --> and then if she still does not want further treatment, OK to follow her choices of minimalist intervention // would need tight Na restriction. -home once off O2 -- hopefully tomorrow otherwise as above Subjective Feels comfortable w/ breathing. Has been sitting up for couole hours. Was using the nasal cannula only intermittently. +BM. Patient feels like she is 90% back to baseline. + wet cough, clear. Urination is normal amount. Cramps yesterday were at thighs. They have not reoccurred today. Review of Systems Review of Systems: Constitutional: Denies fever, chills Cardiovascular: Denies chest pain, palpitations Respiratory: Denies shortness of breath Gastrointestinal: Denies abdominal pain, nausea, vomiting, constipation, diarrhea Genitourinary: Denies urinary symptoms including dysuria Musculoskeletal: Denies weakness Neurological: Denies headache, numbness, tingling, focal weakness Physical Exam Physical Exam: General: Grossly A&O. NAD. Cooperative. HEENT: Atraumatic, normocephalic. EOMI Pulm: CTAB. -wheezes, -rales, -rhonchi. No respiratory distress. Faint inspiratory crackles on R. Mostly clear. No wheezes. Air entry decent. Cardiac: RRR, -mrg. Radial pulses intact and symmetrical. 2/6 systolic murmur. 2+ LE edema, none at feet. doesn't go past knees. slightly worse than yeste rday's exam. Abdominal: Nontender, nondistended, soft. Results & Data Results & Data ([facility]) Vital Signs (Past 12 Hours) Vital Signs Temp Pulse Pulse Resp BP Pulse Ox 06/23/20 03:27 36.7 C 86 18 115/73 91 06/23/20 00:28 91 H 06/22/20 22:48 36.6 C 88 18 125/77 94 06/22/20 19:11 36.7 C 96 H 18 134/81 92 Resident Activity Tracking Resident Involvement: Resident Care Provided Care Provided: Adult Hospital Medicine (1) Pulmonary edema Chronicity: acute Qualified Code(s): J81.0 - Acute pulmonary edema
[2020-06-23] MEDS ORDERED: POTASSIUM CHLORIDE PWD 20 MEQ PACK PO ONE (07:15)
[2020-06-23] MEDS: HEPARIN SOD 5,000 UNIT/0.5 ML VIAL SQ SCH ×2 (08:01→20:44)
[2020-06-23] MEDS: SACUBITRIL-VALSARTAN 24-26 MG TAB PO SCH ×2 (08:01→20:45)
[2020-06-23] MEDS: FUROSEMIDE 40 MG in SYRINGE 0 ML IV SCH ×2 (08:01→20:45)
--- NOTE | 2020-06-23 15:55 | Billing Data ---
Date of Service June 23, 2020 Coding Level of Care Code 69326 Subseq Hosp Care Lvl 3
[2020-06-23] MEDS: POTASSIUM CHLORIDE PWD 20 MEQ PACK PO SCH (20:44)
[2020-06-23] MEDS ORDERED: POTASSIUM CHLORIDE PWD 20 MEQ PACK PO SCH (21:00)
[2020-06-24] MEDS: FUROSEMIDE 40 MG in SYRINGE 0 ML IV SCH ×2 (07:33→21:52)
[2020-06-24] MEDS: HEPARIN SOD 5,000 UNIT/0.5 ML VIAL SQ SCH ×2 (07:33→21:52)
[2020-06-24] MEDS: POTASSIUM CHLORIDE PWD 20 MEQ PACK PO SCH (07:33)
[2020-06-24] MEDS: SACUBITRIL-VALSARTAN 24-26 MG TAB PO SCH ×2 (07:33→21:52)
--- NOTE | 2020-06-24 12:37 | Hospitalist Progress Note ---
Date of Service June 24, 2020 Assessment & Plan (1) Dyspnea on exertion: Loly Levy is an 89 year-old female from [place] at [facility] w/ no significant PMHx who presented several wks of THACKER and orthopnea thought to be secondary to new-onset subacute HFrEF. Clinically, she has made progressive improvement since her arrival. Acute Hypoxic Respiratory Failure -- likely secondary to subacute HFrEF exacerbation - Clinically, patient reported several weeks of ongoing dyspnea on exertion, wet cough, and orthopnea; on arrival, did require 2L NC to maintain O2 saturations >90% - Work-up as follows: - Physical exam showing peripheral edema, rales, JVD -- s/o volume overload- driven process - Without significant leukocytosis, constitutional symptoms / recent illness, or anemia - BNP > 35K at admission - TTE: LV systolic function is moderate to severely reduced (LVEF 30-35%). Grade II diastolic dysfunction. Mildly dilated L atrium. Severe calcific aortic stenosis. Moderate MR. - CTA-Chest: No pulmonary emboli identified. Moderate pulmonary edema. Small left and trace right pleural effusions. Cardiomegaly. - Troponin peaked at 0.112, downtrended thereafter - Responded very well to diuresis - Suspect (improving) respiratory failure likely secondary to volume overload from new-onset, subacute HFrEF in context of severe - Maintain SpO2 > 90-92% with supplemental p.r.n. - Lasix as below Subacute HFrEF -- LVEF 30-35% - In the context of respiratory failure, as above (resolving), and newly- discovered severe - Between TTE findings and BNP > 35k on arrival, do suspect this is likely culprit for ongoing AHRF - LV systolic function is moderate to severely reduced (LVEF 30-35%). Grade II diastolic dysfunction. Mildly dilated L atrium. Severe calcific aortic stenosis. Moderate MR. - From a dietary perspective, patient does endorse a diet that may be contributory / with a high salt load (canned soup, dinner soup, sauces, salad dressings, bologna, etc.) - Severe calcific likely contributory - Elevated troponin noted, but seems less likely this is ischemic (as below) event -- cannot be excluded however - Cardiology consulted, appreciate insight and recommendations on further interventions - Discussed possibility of valvular intervention and possible catheterization -- family to discuss tonight - Continue Entresto - Lasix 40mg IV b.i.d. for now -- close monitoring of I&Os, clinical response in setting of severe - Still appearing volume overloaded on exam, although it seems AHRF has greatly improved since admission Severe Aortic Stenosis -- moderate mitral regurgitation also noted on echocardiography - Noted on echo, murmur on physical exam - Diuresis with Lasix alongside close clinical monitoring with regard to preload dependence - Cardiology consult, as above Elevated Troponin -- suspect secondary to demand ischemia - Troponin: 0.1->0.112->0.104 -- no longer trending - EKG without signs of ischemia, although poor quality; +RBBB is technically new since 2011 ECG - Echo as above -- no regional deficits - Denying any signs or symptoms of chest pain throughout illness, at present - Suspect in setting of subacute HFrEF exacerbation, AHRF this is d/t demand ischemia - Considering catheterization, as above Hypokalemia - K 3.0 persistently - KCl 40mEq PO qAM - Monitor with ongoing diuresis Transaminitis -- resolved - at admission: ALT at 99, AST at 44, ~unchanged on 06/22 - Suspect secondary to hepatic vascular congestion from new onset CHF. Dieresis as above Suspected RALPH - BUN/Cr at 32/1.37 on arrival - baseline Cr unknown -- however suspect is around 0.9 based on AM labs 06/23, - suspect pre-renal etiology due to lack of renal perfusion (in the setting of new onset CHF) - trend BMP Diet: Low sodium, fluid restrict DVT ppx: Heparin 5000 units SQ BID Dispo: Med/Surg with tele Code: DNR/DNI (2) Pulmonary edema: (3) Elevated troponin: (4) Transaminitis: (5) Elevated serum creatinine: (6) Diastolic CHF: (7) Acute exacerbation of CHF (congestive heart failure): (8) Severe aortic stenosis by prior echocardiogram: (9) Moderate mitral regurgitation by prior echocardiography: (10) Muscle cramping: Admission and Anticipated Discharge Date Admission Date: June 21, 2020 Supervising Physician Co-Signing Physician Notes Patient seen and examined with PGY-1 Dr. Reyes. Agree with history, exam findings, assessment and plan of care as outlined. 89 year old female with no past medical history admitted with new onset acute CHF exacerbation. Feels a bit better. Less short of breath. She is a bit dyspneic with talking. Moving air well on pulmonary exam. Systolic murmur over aortic area. + 1 pedal edema. 1. Acute hypoxic respiratory failure. Secondary to acute HFrEF. Echo with EF 30-35%, grade 2 diastolic dysfunction. Noted made of severe calcified aortic stenosis. Continue diuresis with IV Lasix 40mg BID. Started Entresto. Continue with 1500mL fluid restriction. 2. Aortic stenosis. May be a good candidate for TAVR. Discussed this with her. Also discussed that even with diuresis, she may continue to have dyspnea secondary to severe that may impact her ability participate in activities she enjoys. Outpatient follow up. Appreciate cardiology recommendations. 3. Elevated troponin. Likely demand ischemia. 4. Transaminitis. Resolved. Secondary to hepatic congestion. 5. Elevated Cr. Did decrease, but now bumped up again with diuresis. Will need to watch to ensure we do not dry her out too much. Dispo: pending clinical improvement. Subjective NAEO. Feeling well overall this morning. Says she isn't feeling short of breath at all anymore, but certainly still getting the cough. Says the cough is mostly dry, but once in a while will bring up clear expectorant. No fevers, chills, NS. No other illness-like symptoms. Appetite good. No chest pain, palpitations. Has been able to ambulate with walker w/o difficulty. Review of Systems Review of Systems: as per HPI Physical Exam Physical Exam: General: Overall well-appearing 89yoF who is sitting back in her exam chair, relaxed, upon my arrival. NAD. HEENT: NCAT. Eyes - Sclera are white, anicteric, and without injection. PERRL. EOMs display full ROM bilaterally. Mouth - MMM with no tonsillar edema or exudates. JVP w/ prominent A waves approx. 3 finger breadths above the clavicle at 55deg Cardiac: Normal rate and regular rhythm; S1 and S2 present with grade 2/6 NUVIA best heard at the RUSB. JVP as above. 1+ pitting edema in the LEs b/l. Pulmonary: Good respiratory effort with symmetric expansion of the chest. Mild conversational dyspnea. Lungs demonstrating L > R crackles throughout basilar and mid-lung mad[place]. Abdominal: Normoactive bowel sounds. Abdomen was soft, nondistended, and non- tender to palpation. Extremities: Upper and lower extremities are warm and well perfused. Peripheral edema as above Results & Data Results & Data ([facility]) Vital Signs (Past 12 Hours) Vital Signs Temp Pulse Resp BP Pulse Ox 06/24/20 07:39 36.6 C 89 16 114/75 97 06/24/20 06:34 89 16 114/75 92 06/24/20 03:31 36.6 C 97 H 18 114/69 96 Resident Activity Tracking Resident Involvement: Resident Care Provided Care Provided: Adult Hospital Medicine (1) Pulmonary edema Chronicity: acute Qualified Code(s): J81.0 - Acute pulmonary edema
[2020-06-24 14:03] LABS: BUN Creatinine Ratio 16.8 (10-20); Calcium 8.6 mg/dl (8.5-10.1); Creatinine Clr Calc Pharmacy 24.6 ml/min; Est GFR (African American) 42.9 ml/min; Magnesium 2.3 mg/dl (1.8-2.4); Phosphorus 2.4 mg/dl (2.5-4.9); Potassium 4.2 mmol/L (3.5-5.1)
[2020-06-24] MEDS ORDERED: LOPERAMIDE HCL 2 MG CAP PO PRN (17:38)
--- NOTE | 2020-06-24 18:18 | Cardiology Consultation ---
Date of Consultation June 24, 2020 Assessment & Plan (1) CHF (congestive heart failure): She presented with pulmonary vascular congestion. This is likely etiology for her symptoms of dyspnea. This could be on the basis of her reduced LV systolic function or severe aortic stenosis. Why this developed rapidly is unclear. Doubt that she had an acute coronary event recently. He has been on a diuretic. Symptomatic Kathy she is better, but it is unclear how well she has been diuresed as the NAVIN measurement in the chart is not reliable. (2) Severe aortic stenosis by prior echocardiogram: She has severe aortic stenosis. Her symptoms are likely related. She did not report other symptoms such as chest pain or syncope. I did discuss with her the need for an aortic valve replacement. She is not in favor of operative intervention but seemed to entertain the possibility of a percutaneous valve. She was to discuss this with her niece. I did discuss the procedure in options with her niece as well. (3) Elevated troponin: Likely related to her heart failure. Possibly related to her valvular heart disease. No acute coronary syndrome. (4) Moderate mitral regurgitation: This could complicate her options for aortic valve replacement. However, moderate mitral regurgitation I do not believe is a contraindication to a trans aortic valve replacement. (5) Cardiomyopathy: Unclear etiology. She did not report symptoms consistent with ischemic heart disease, but is certainly in a demographic where this is common. I recommended coronary angiography both for evaluation of her cardiomyopathy and in preparation for an aortic valve replacement. Again, she wished to consider her options and has not decided yet. She has been started on Entresto. She should be started on beta-blockade as well either with low-dose metoprolol succinate or low-dose carvedilol. I would favor metoprolol succinate as it likely has less antihypertensive effect. History of Present Illness Reason for Consultation: Aortic stenosis, heart failure Requesting Physician: Armand Attending Physician: Katrina Macario DO History of Present Illness The patient is an 89-year-old woman without a known history of cardiac disease who was admitted to the hospital for symptoms of dyspnea. Patient states that she has been in good health for 89 years. However approximately 2 weeks ago she began to notice some worsening breathing difficulty especially with exertion. She did not report overt orthopnea. She did report some lower extremity edema. She had developed a nonproductive cough. She denies fevers or chills. She did not report dizziness or lightheadedness. She did not report palpitations. No symptoms of syncope. She is felt to have an element of pulmonary vascular congestion and did undergo diuresis. She states that her breathing is improved. In general she is a very sedentary individual. She used to walk her dog but her dog . As such, she limits her activity to her apartment primarily. She states that her residence has a swimming pool available for exercise, but it is too far to walk to the swimming pool. Allergies Allergy/AdvReac Type Severity Reaction Status Date / Time No Known Allergies Verified 06/21/20 17:37 Home Medications Medication Instructions Recorded Confirmed Type No Known Home Medications 06/21/20 06/21/20 History Patient History Medical History No active medical problems Family History Other Heart disease Social History Smoking Status: Never smoker Hx Alcohol Use: No Hx Substance Use: No Preferred Language: Maori Communication Ability: Effective Interior Block Wirer Required: No Beliefs That Will Affect Care: None marital status: Single Current Living Situation: Alone Feels Safe at Home: Yes Safety Concerns: Feels Safe At This Time Assistive Devices: Oxygen - at Night Review of Systems Review of Systems: Per HPI. No symptoms of chest pain. Physical Exam Physical Exam: She is alert and oriented x3. Mood affect appear normal. She answered all questions appropriately. HEENT: Sclerae are anicteric. Pupils are equal and reactive to light and accommodation. Extraocular movements were intact. Neuro: Cranial nerves intact Neck: Examination of the submandibular region did not reveal any significant lymphadenopathy. Carotids are palpable bilaterally and free of bruits on auscultation. There was no evidence of jugular venous distention. The thyroid was not enlarged. Lungs: Lungs are clear to auscultation bilaterally. There are no rales wheezes or rhonchi. She has normal respiratory effort without use of accessory muscles. There is normal pulmonary excursion. Cardiac: The rhythm was regular. S1 and S2 were normal. Harsh crescendo systolic murmur. The PMI was not markedly displaced on palpation. Abdomen: The abdomen was soft and nontender. Extremities: Patient has bilateral radial pulses that are equal in intensity. There is no evidence cyanosis or clubbing. Moderate lower extremity edema Skin: There are no rashes noted on examination today. Results & Data ([facility]) Vital Signs (Past 12 Hours) Vital Signs Temp Pulse Pulse Resp BP Pulse Ox 06/24/20 16:00 36.6 C 103 H 18 100/64 94 06/24/20 12:00 37 C 96 H 18 109/72 94 06/24/20 07:39 36.6 C 89 16 114/75 97 06/24/20 06:34 89 16 114/75 92 Laboratory Results Abnormal Lab Results 06/24/20 13:10 Sodium 140 Potassium 4.2 D Chloride 105 Carbon Dioxide 29 Anion Gap 6.0 BUN 22 H Creatinine 1.28 H D Est Cr Clr Drug Dosing 24.6 Est GFR ( Amer) 42.9 Est GFR (Non-Af Amer) 37.0 BUN/Creatinine Ratio 16.8 Glucose 190 H Calcium 8.6 Phosphorus 2.4 L Magnesium 2.3 Diagnostic Findings A chest x-ray and a chest CTA were performed at the time of admission both which suggested pulmonary edema. Echocardiogram performed on 06/22/2020 revealed an ejection fraction of 30 35%. Stage II diastolic dysfunction. Mild left atrial dilation. Severe calcific aortic stenosis with moderate mitral regurgitation. ECG Additional Comments: EKG obtained the time admission reveals sinus tachycardia, right bundle branch block and occasional PVCs. PG Care Time/CCT Total # of Minutes Spent Total Time Spent with Patient: Total time spent is greater than 50% in coordination of care (as documented) at patient's floor/unit and/or counseling patient: Coding Level of Care Code 58915 Initial Inpt Care Lvl 3 Diagnoses CHF (congestive heart failure) I50.9 Heart failure chronicity: acute Heart failure type: unspecified Severe aortic stenosis by prior echocardiogram I35.0 Elevated troponin R77.8 Moderate mitral regurgitation I34.0 Cardiomyopathy I42.9 (1) CHF (congestive heart failure) Heart failure chronicity: acute Heart failure type: unspecified Qualified Code(s): I50.9 - Heart failure, unspecified
[2020-06-25] MEDS: ACETAMINOPHEN 325 MG TAB PO PRN (05:27)
[2020-06-25 06:51] LABS: BUN Creatinine Ratio 21.2 (10-20); Calcium 8.3 mg/dl (8.5-10.1); Creatinine Clr Calc Pharmacy 32.9 ml/min; Est GFR (African American) 60.8 ml/min; Est GFR (Non-African American) 52.4 ml/min; Potassium 3.8 mmol/L (3.5-5.1)
[2020-06-25] MEDS ORDERED: FUROSEMIDE 60 MG in SYRINGE 0 ML IV ONE (09:00)
[2020-06-25] MEDS: POTASSIUM CHLORIDE CRTAB 20 MEQ TABCR PO SCH (09:39)
[2020-06-25] MEDS: SACUBITRIL-VALSARTAN 24-26 MG TAB PO SCH (09:39)
[2020-06-25] MEDS: HEPARIN SOD 5,000 UNIT/0.5 ML VIAL SQ SCH ×2 (09:40→20:40)
--- NOTE | 2020-06-25 10:11 | Hospitalist Progress Note ---
Date of Service June 25, 2020 Assessment & Plan (1) Dyspnea on exertion: Loly Levy is an 89 year-old female from [place] at [facility] w/ no significant PMHx who presented several wks of THACKER and orthopnea thought to be secondary to new-onset subacute HFrEF. Clinically, she has made progressive improvement since her arrival. Acute Hypoxic Respiratory Failure -- likely secondary to subacute HFrEF exacerbation - Clinically, patient reported several weeks of ongoing dyspnea on exertion, wet cough, and orthopnea; on arrival, did require 2L NC to maintain O2 saturations >90% - Work-up as follows: - Physical exam showing peripheral edema, rales, JVD -- s/o volume overload- driven process - Without significant leukocytosis, constitutional symptoms / recent illness, or anemia - BNP > 35K at admission - TTE: LV systolic function is moderate to severely reduced (LVEF 30-35%). Grade II diastolic dysfunction. Mildly dilated L atrium. Severe calcific aortic stenosis. Moderate MR. - CTA-Chest: No pulmonary emboli identified. Moderate pulmonary edema. Small left and trace right pleural effusions. Cardiomegaly. - Troponin peaked at 0.112, downtrended thereafter - Responded very well to diuresis - Suspect (improving) respiratory failure likely secondary to volume overload from new-onset, subacute HFrEF in context of severe - Maintain SpO2 > 90-92% with supplemental p.r.n. - Lasix as below Subacute HFrEF -- LVEF 30-35% - In the context of respiratory failure, as above (resolving), and newly- discovered severe - Between TTE findings and BNP > 35k on arrival, do suspect this is likely culprit for ongoing AHRF - LV systolic function is moderate to severely reduced (LVEF 30-35%). Grade II diastolic dysfunction. Mildly dilated L atrium. Severe calcific aortic stenosis. Moderate MR. - From a dietary perspective, patient does endorse a diet that may be contributory / with a high salt load (canned soup, dinner soup, sauces, salad dressings, bologna, etc.) - Severe calcific likely contributory - Elevated troponin noted, but seems less likely this is ischemic (as below) event -- cannot be excluded however - Cardiology consulted, appreciate insight and recommendations on further interventions - Discussed possibility of valvular intervention and possible catheterization - Patient interested in learning more about TAVR, specifically at [facility] - Will require catheterization non-urgently to r/o possible ischemic contribution - Continue Entresto - Begin metoprolol succinate 12.5mg daily - Increase to Lasix 40mg IV b.i.d. with careful monitoring of pressures, kidney function - Continue to monitor I+Os -- suspect the values recorded in our system may not be accurate - Consider establishing with CHF clinic upon d/c Severe Aortic Stenosis -- moderate mitral regurgitation also noted on echocardiography - Noted on echo, murmur on physical exam - Diuresis with Lasix alongside close clinical monitoring with regard to preload dependence - Cardiology consult, as above - Patient interested in establishing with [facility] to further discuss TAVR Elevated Troponin -- suspect secondary to demand ischemia - Troponin: 0.1->0.112->0.104 -- no longer trending - EKG without signs of ischemia, although poor quality; +RBBB is technically new since 2011 ECG - Echo as above -- no regional deficits - Denying any signs or symptoms of chest pain throughout illness, at present - Suspect in setting of subacute HFrEF exacerbation, AHRF this is d/t demand ischemia - Considering catheterization, as above Hypokalemia - K 3.0 persistently - KCl 40mEq PO qAM - Monitor with ongoing diuresis Transaminitis -- resolved - at admission: ALT at 99, AST at 44, ~unchanged on 06/22 - Suspect secondary to hepatic vascular congestion from new onset CHF. Dieresis as above Suspected RALPH - BUN/Cr at 32/1.37 on arrival - baseline Cr unknown -- however suspect is around 0.9 based on AM labs 06/23, - suspect pre-renal etiology due to lack of renal perfusion (in the setting of new onset CHF) - trend BMP Diet: Low sodium, fluid restrict DVT ppx: Heparin 5000 units SQ BID Dispo: Med/Surg with tele Code: DNR/DNI (2) Pulmonary edema: (3) Elevated troponin: (4) Transaminitis: (5) Elevated serum creatinine: (6) Diastolic CHF: (7) Acute exacerbation of CHF (congestive heart failure): (8) Severe aortic stenosis by prior echocardiogram: (9) Moderate mitral regurgitation by prior echocardiography: (10) Muscle cramping: Admission and Anticipated Discharge Date Admission Date: June 21, 2020 Supervising Physician Co-Signing Physician Notes Patient seen and examined with PGY-1 Dr. Reyes. Agree with history, exam findings, assessment and plan of care as outlined. 89 year old female with no past medical history admitted with new onset acute CHF exacerbation. Feels a bit better. Less short of breath, but does endorse orthopnea. She is concerned about her blood pressure. Denies dizziness, chest pain. She is a bit dyspneic with talking. Moving air well on pulmonary exam, crackles at the bilateral bases. Systolic murmur over aortic area. + 1 pedal edema. 1. Acute hypoxic respiratory failure. Resolved. Secondary to acute HFrEF. Echo with EF 30-35%, grade 2 diastolic dysfunction. Noted made of severe calcified aortic stenosis. Increased to 60mg IV Lasix this morning, but with lower end blood pressures, will hold off on additional diuresis this evening. Will hold Entresto today. Can be a bit more liberal with her fluid restriction in light of low BPs. Ok to tolerate slightly lower BPs while she is sleeping. 2. Aortic stenosis. May be a good candidate for TAVR. Discussed this with her. Also discussed that even with diuresis, she may continue to have dyspnea secondary to severe that may impact her ability participate in activities she enjoys. Will set her up for consultation at [place]. Appreciate continued cardiology recommendations. 3. Elevated troponin. Peaked and downtrended. Likely demand ischemia. 4. Transaminitis. Resolved. Secondary to hepatic congestion. 5. Elevated Cr. Resolved, but will need to continue to monitor in light of diuresis. Dispo: pending clinical improvement. Subjective Feeling well. No shortness of breath. Reports coughing less. No chest pain or pressure. Says she talked with her niece RE: TAVR. She is interested in at least establishing with [facility] to learn more about the procedure, risks/benefits. Good appetite. Feels like she should be voiding more given the amount of Lasix she is getting. Review of Systems Review of Systems: as per HPI Physical Exam Physical Exam: General: Overall well-appearing 89yoF who is sitting back in her exam chair, relaxed, upon my arrival. NAD. HEENT: NCAT. Eyes - Sclera are white, anicteric, and without injection. PERRL. EOMs display full ROM bilaterally. Mouth - MMM with no tonsillar edema or exudates. JVP w/ prominent A waves approx. 3 finger breadths above the clavicle at 55deg Cardiac: Normal rate and regular rhythm; S1 and S2 present with grade 2/6 NUVIA best heard at the RUSB. JVP as above. 1+ pitting edema in the LEs b/l -- unchanged much from yesterday Pulmonary: Good respiratory effort with symmetric expansion of the chest. Less conversational dyspnea today than yesterday. Lungs demonstrating L > R crackles throughout basilar and mid-lung field - improved compared to yesterday. Abdominal: Normoactive bowel sounds. Abdomen was soft, nondistended, and non- tender to palpation. Extremities: Upper and lower extremities are warm and well perfused. Peripheral edema as above Results & Data Results & Data ([facility]) Vital Signs (Past 12 Hours) Vital Signs Temp Pulse Pulse Resp BP BP Pulse Ox 06/25/20 07:46 36.5 C 80 18 98/61 L 86/54 L 97 06/25/20 04:00 37.0 C 95 H 20 113/75 96 06/25/20 01:45 95 H 06/24/20 23:08 36.8 C 89 20 109/70 94 Resident Activity Tracking Resident Involvement: Resident Care Provided Care Provided: Adult Hospital Medicine (1) Pulmonary edema Chronicity: acute Qualified Code(s): J81.0 - Acute pulmonary edema
--- NOTE | 2020-06-25 11:58 | Cardiology Progress Note ---
Date of Service June 25, 2020 Assessment & Plan (1) CHF (congestive heart failure): Improved from admission. However, still an element of pulmonary vascular congestion, lower extremity edema and symptoms. Her diuretic regimen has been intensified. (2) Severe aortic stenosis by prior echocardiogram: She has severe aortic stenosis. She will need a valve replacement otherwise she will continue to have symptoms and readmissions. At this point she seems interested in evaluation [facility]. She would not entertain the possibility of an open surgery, but likely would be a good candidate for percutaneous intervention. (3) Elevated troponin: Likely related to her heart failure. Possibly related to her valvular heart disease. No acute coronary syndrome. (4) Moderate mitral regurgitation: This could complicate her options for aortic valve replacement. However, moderate mitral regurgitation I do not believe is a contraindication to a trans aortic valve replacement. (5) Cardiomyopathy: Unclear etiology. No current symptoms of ischemia or coronary insufficiency. He has been started on Entresto. She is entertaining the possibility of a valve procedure she will need a cardiac catheterization at some point. A coronary evaluation is also indicated for her cardiomyopathy. I discussed the procedure with her. It certainly could be performed during her admission. Alternatively, this could be arranged as an outpatient after she has an opportunity to discuss the actual procedure and options with the staff at [facility]. Admission and Anticipated Discharge Date Admission Date: June 21, 2020 Subjective This morning patient claims to be feeling well overall. She did report some continued dyspnea with exertion. This was in the setting of going to the bath room and back. A she certainly feels better since admission, she does not feel quite back at her baseline. No chest pain. No dizziness. Review of Systems Review of Systems: Per HPI Physical Exam Physical Exam: She is alert and oriented x3. Mood affect appear normal. She answered all questions appropriately. HEENT: Sclerae are anicteric. Pupils are equal and reactive to light and accommodation. Extraocular movements were intact. Neuro: Cranial nerves intact Lungs: Some crackles primarily at the right base. Normal respiratory effort. No expiratory wheezing. Cardiac: The rhythm was regular. S1 and S2 were normal. Harsh crescendo systolic murmur. The PMI was not markedly displaced on palpation. Extremities: Patient has bilateral radial pulses that are equal in intensity. There is no evidence cyanosis or clubbing. Moderate lower extremity edema Skin: There are no rashes noted on examination today. Results & Data ([facility]) Vital Signs (Past 12 Hours) Vital Signs Temp Pulse Pulse Resp BP BP Pulse Ox 06/25/20 11:50 36.4 C L 78 20 85/60 L 96 06/25/20 10:29 97 06/25/20 07:46 36.5 C 80 18 98/61 L 86/54 L 97 06/25/20 04:00 37.0 C 95 H 20 113/75 96 06/25/20 01:45 95 H Laboratory Results Abnormal Lab Results 06/24/20 06/25/20 13:10 05:43 Sodium 140 137 Potassium 4.2 D 3.8 Chloride 105 103 Carbon Dioxide 29 30 Anion Gap 6.0 4.0 BUN 22 H 20 H Creatinine 1.28 H D 0.96 D Est Cr Clr Drug Dosing 24.6 32.9 Est GFR ( Amer) 42.9 60.8 Est GFR (Non-Af Amer) 37.0 52.4 BUN/Creatinine Ratio 16.8 21.2 H Glucose 190 H 122 H Calcium 8.6 8.3 L Phosphorus 2.4 L Magnesium 2.3 PG Care Time/CCT Total # of Minutes Spent Total Time Spent with Patient: Total time spent is greater than 50% in coordination of care (as documented) at patient's floor/unit and/or counseling patient: Coding Level of Care Code 43893 Subseq Hosp Care Lvl 2 Diagnoses CHF (congestive heart failure) I50.9 Heart failure chronicity: acute Heart failure type: unspecified Severe aortic stenosis by prior echocardiogram I35.0 Elevated troponin R77.8 Moderate mitral regurgitation I34.0 Cardiomyopathy I42.9 (1) CHF (congestive heart failure) Heart failure chronicity: acute Heart failure type: unspecified Qualified Code(s): I50.9 - Heart failure, unspecified
[2020-06-25] MEDS ORDERED: FUROSEMIDE 40 MG in SYRINGE 0 ML IV SCH ×2 (17:00→21:00)
[2020-06-25] MEDS: FUROSEMIDE 60 MG in SYRINGE 0 ML IV SCH (17:51)
[2020-06-25] MEDS ORDERED: FUROSEMIDE 60 MG in SYRINGE 0 ML IV SCH (21:00)
[2020-06-26] MEDS: ACETAMINOPHEN 325 MG TAB PO PRN (05:33)
[2020-06-26 07:23] LABS: BUN Creatinine Ratio 24.2 (10-20); Creatinine Clr Calc Pharmacy 28.7 ml/min; Est GFR (African American) 51.5 ml/min; Est GFR (Non-African American) 44.5 ml/min; Potassium 4.2 mmol/L (3.5-5.1)
[2020-06-26] MEDS: METOPROLOL SUCC 25MG EXT REL TAB PO SCH (07:56)
[2020-06-26] MEDS: FUROSEMIDE 60 MG in SYRINGE 0 ML IV SCH (07:56)
[2020-06-26] MEDS: POTASSIUM CHLORIDE CRTAB 20 MEQ TABCR PO SCH (07:57)
[2020-06-26] MEDS: HEPARIN SOD 5,000 UNIT/0.5 ML VIAL SQ SCH ×2 (07:57→20:16)
--- NOTE | 2020-06-26 12:47 | Hospitalist Progress Note ---
Date of Service June 26, 2020 Assessment & Plan (1) Dyspnea on exertion: Loly Levy is an 89 year-old female from [place] at [facility] w/ no significant PMHx who presented several wks of THACKER and orthopnea thought to be secondary to new-onset subacute HFrEF. Clinically, she has made progressive improvement since her arrival. -- appearing more fatigued today than in previous days -- even a little dry. UOP not very reliable. Held AM Lasix, metoprolol given orthostatic symptoms ove rnight. Promote PO intake this AM, see if that can promote some energy as well as support pressures. Concern that severe is playing a major role with all of this; if TAVR pursued, may be required sooner. Acute Hypoxic Respiratory Failure -- likely secondary to subacute HFrEF exacerbation - Clinically, patient reported several weeks of ongoing dyspnea on exertion, wet cough, and orthopnea; on arrival, did require 2L NC to maintain O2 saturations >90% - Work-up as follows: - Physical exam showing peripheral edema, rales, JVD -- s/o volume overload- driven process - Without significant leukocytosis, constitutional symptoms / recent illness, or anemia - BNP > 35K at admission - TTE: LV systolic function is moderate to severely reduced (LVEF 30-35%). Grade II diastolic dysfunction. Mildly dilated L atrium. Severe calcific aortic stenosis. Moderate MR. - CTA-Chest: No pulmonary emboli identified. Moderate pulmonary edema. Small left and trace right pleural effusions. Cardiomegaly. - Troponin peaked at 0.112, downtrended thereafter - Responded very well to diuresis - Suspect (improving) respiratory failure likely secondary to volume overload from new-onset, subacute HFrEF in context of severe - At this point, patient is mostly saturating OK on room air - some of the measurements yesterday were recorded with supplemental O2, but she was actually on RA. However, do believe that she is intermittently becoming more dyspneic, occasionally desaturating and requiring supplement O2. Still improved from admission, but waxing/waning. Suspect that her severe is contributory in this. - Maintain SpO2 > 90-92% with supplemental p.r.n. - Lasix as below Subacute HFrEF -- LVEF 30-35% - In the context of respiratory failure, as above (resolving), and newly- discovered severe - Between TTE findings and BNP > 35k on arrival, do suspect this is likely culprit for ongoing AHRF - LV systolic function is moderate to severely reduced (LVEF 30-35%). Grade II diastolic dysfunction. Mildly dilated L atrium. Severe calcific aortic stenosis. Moderate MR. - From a dietary perspective, patient does endorse a diet that may be contributory / with a high salt load (canned soup, dinner soup, sauces, salad dressings, bologna, etc.) - Severe calcific almost certainly contributory - Elevated troponin noted, but seems less likely this is ischemic (as below) event -- cannot be excluded however - Cardiology consulted, appreciate insight and recommendations on further interventions - Discussed possibility of valvular intervention and possible catheterization - Patient interested in learning more about TAVR, specifically at [facility] [place] - Will require catheterization non-urgently to r/o possible ischemic contribution - Continue Entresto -- held PM 06/25 given HoTN - Begin metoprolol succinate 12.5mg daily - Increase to Lasix 40mg IV b.i.d. with careful monitoring of pressures, kidney function -- held AM of 06/26 given HoTN, orthostatic symptoms - Continue to monitor I+Os -- suspect the values recorded in our system may not be accurate - Consider establishing with CHF clinic upon d/c Severe Aortic Stenosis -- moderate mitral regurgitation also noted on echocardiography - Noted on echo, murmur on physical exam - Diuresis with Lasix alongside close clinical monitoring with regard to preload dependence - Cardiology consult, as above - Patient interested in establishing with [facility] to further discuss TAVR - Do suspect that a good portion of patient's dyspnea and fatigue is coming from her severe -- appreciate cardiology insight of time sensitivity on TAVR Elevated Troponin -- suspect secondary to demand ischemia - Troponin: 0.1->0.112->0.104 -- no longer trending - EKG without signs of ischemia, although poor quality; +RBBB is technically new since 2011 ECG - Echo as above -- no regional deficits - Denying any signs or symptoms of chest pain throughout illness, at present - Suspect in setting of subacute HFrEF exacerbation, AHRF this is d/t demand ischemia - Considering catheterization, as above Diet: Low sodium, fluid restrict DVT ppx: Heparin 5000 units SQ BID Dispo: Med/Surg with tele Code: DNR/DNI (2) Pulmonary edema: (3) Elevated troponin: (4) Transaminitis: (5) Elevated serum creatinine: (6) Diastolic CHF: (7) Acute exacerbation of CHF (congestive heart failure): (8) Severe aortic stenosis by prior echocardiogram: (9) Moderate mitral regurgitation by prior echocardiography: (10) Muscle cramping: Admission and Anticipated Discharge Date Admission Date: June 21, 2020 Supervising Physician Co-Signing Physician Notes Patient seen and examined with PGY-1 Dr. Reyes. Agree with history, exam findings, assessment and plan of care as outlined. 89 year old female with no past medical history admitted with new onset acute CHF exacerbation, found to have cardiomyopathy and severe aortic stenosis. Denies shortness of breath. However, has been getting dizzy when she stands. Reports that she was able to walk a short distance with physical therapy today and did not feel short of breath. Oral mucosa and lips are dry. She is a bit dyspneic with talking. Moving air well on pulmonary exam, crackles at the bilateral bases. Systolic murmur over aortic area. + 1 pedal edema. 1. Acute hypoxic respiratory failure. Improving. secondary to acute, new onset HFrEF. Echo with EF 30-35%, grade 2 diastolic dysfunction. Noted made of severe calcified aortic stenosis. Held Lasix and Entresto due to low blood pressures and dizziness. Seems a bit intravascularly dry. Stopped fluid restriction--encouraged fluid intake today. 2. Aortic stenosis. May be a good candidate for TAVR. Discussed this with her. Also discussed that even with diuresis, she may continue to have dyspnea secondary to severe that may impact her ability participate in activities she enjoys. Appreciate continued cardiology recommendations regarding timing of TAVR. 3. Elevated troponin. Peaked and downtrended. Likely demand ischemia. Dispo: pending clinical improvement. Appreciate PT recommendation for SNF. Subjective Not feeling great this morning. Nursing and patient notes that she tried to get up several times throughout the night and kept looking 'like she was about to pass out.' Got better with sitting/lying down. She says her breathing is fine, but really feels week. No chest pain. No THACKER. Endorses what nursing had noted. No nausea or vomiting. No lightheaded/dizzines sitting in bed. Review of Systems Review of Systems: as per HPI Physical Exam Physical Exam: General: Patient seen first thing in morning. Somnolent, but does respond to questions. She appears moderately pale. Alert and oriented. HEENT: JVP appreciated ~2 finger breadths above the R clavicle. Cardiac: NRRR. S1/S2 present with grade 2/6 NUVIA at the RUSB, otherwise no rubs or gallops. Unchanged Respiratory exam: Difficult today given somnolence. Nasal cannula in place. Mildly increased respiratory effort. Lungs demonstrating mild crackles, L > R. Abdominal: NABS. Abdomen is soft/nontender/nondistended Extremities: 1+ peripheral edema in the lower extremities bilaterally. Good perfusion Results & Data Results & Data ([facility]) Vital Signs (Past 12 Hours) Vital Signs Temp Pulse Resp BP Pulse Ox 06/26/20 11:48 95 06/26/20 07:54 36.5 C 81 18 102/66 95 Resident Activity Tracking Resident Involvement: Resident Care Provided Care Provided: Adult Hospital Medicine (1) Pulmonary edema Chronicity: acute Qualified Code(s): J81.0 - Acute pulmonary edema
--- NOTE | 2020-06-26 18:27 | Cardiology Progress Note ---
Date of Service June 26, 2020 Assessment & Plan (1) CHF (congestive heart failure): Improved from admission. Still with pulmonary vascular congestion. A combination of her poor LV function and . Can attempt continued diuresis (2) Severe aortic stenosis by prior echocardiogram: She has severe aortic stenosis. She will need a valve replacement otherwise she will continue to have symptoms and readmissions. She is interested in [facility], but does not seem to understand that this is necessary for her to feel better. I don't think she has any sense of urgency regarding a decision. (3) Elevated troponin: Likely related to her heart failure. Possibly related to her valvular heart disease. No acute coronary syndrome. (4) Moderate mitral regurgitation: This could complicate her options for aortic valve replacement. However, moderate mitral regurgitation I do not believe is a contraindication to a trans aortic valve replacement. (5) Cardiomyopathy: Unclear etiology. She will need a cardiac cath (right and left). Also AGUSTIN at some point. Again, I have discussed her options every day since admission and she does not seem to be able to decide what she wants us to do versus [facility]. She cannot tell me if she wants to begin the process of moving toward a valve replacement (ie get her cath now) versus wait to talk to someone at [facility]. I think we will have to reduce her medical therapy in the setting of hypotension and dizziness. I would suggest stopping her Entresto. Admission and Anticipated Discharge Date Admission Date: June 21, 2020 Subjective She reports being ambulatory today without significant dyspnea. No dizziness. Still not at baseline and very weak overall. Review of Systems Review of Systems: per HPI Physical Exam Physical Exam: She is alert and oriented x3. Mood affect appear normal. She answered all questions appropriately. HEENT: Sclerae are anicteric. Pupils are equal and reactive to light and accommodation. Extraocular movements were intact. Neuro: Cranial nerves intact Lungs: Normal respiratory effort Cardiac: The rhythm was regular. S1 and S2 were normal. Harsh crescendo systolic murmur. The PMI was not markedly displaced on palpation. Extremities: Patient has bilateral radial pulses that are equal in intensity. There is no evidence cyanosis or clubbing. Moderate lower extremity edema Skin: There are no rashes noted on examination today. Results & Data ([facility]) Vital Signs (Past 12 Hours) Vital Signs Temp Pulse Resp BP BP Pulse Ox 06/26/20 15:28 36.6 C 87 18 103/67 93 06/26/20 13:39 36.7 C 85 95/64 L 96 06/26/20 11:48 95 06/26/20 07:54 36.5 C 81 18 102/66 95 Laboratory Results Abnormal Lab Results 06/26/20 06:39 Sodium 137 Potassium 4.2 Chloride 103 Carbon Dioxide 30 Anion Gap 5.0 BUN 27 H Creatinine 1.10 Est Cr Clr Drug Dosing 28.7 Est GFR ( Amer) 51.5 Est GFR (Non-Af Amer) 44.5 BUN/Creatinine Ratio 24.2 H Glucose 134 H Calcium 9.0 PG Care Time/CCT Total # of Minutes Spent Total Time Spent with Patient: Total time spent is greater than 50% in coordination of care (as documented) at patient's floor/unit and/or counseling patient: Coding Level of Care Code 94644 Subseq Hosp Care Lvl 2 Diagnoses CHF (congestive heart failure) I50.9 Heart failure chronicity: acute Heart failure type: unspecified Severe aortic stenosis by prior echocardiogram I35.0 Elevated troponin R77.8 Moderate mitral regurgitation I34.0 Cardiomyopathy I42.9 (1) CHF (congestive heart failure) Heart failure chronicity: acute Heart failure type: unspecified Qualified Code(s): I50.9 - Heart failure, unspecified
[2020-06-27 06:35] LABS: Basophils # (auto) 0.02 K/uL (0-0.2); Basophils % (auto) 0.2 %; Eosinophils # (auto) 0.13 K/uL (0-0.5); Eosinophils % (auto) 1.3 %; Hematocrit (blood only) 41.5 % (37-47); Hemoglobin 13.4 g/dL (12.0-16.0); Immature Granulocytes # (auto) 0.02 K/uL (0.00-0.02); Immature Granulocytes % (auto) 0.2 %; Lymphocytes # (auto) 1.85 K/uL (1.2-3.4); Lymphocytes % (auto) 18.6 %; Mean Corpuscular Hemoglobin 29.5 pg (25-34); Mean Corpuscular Hgb Conc 32.3 g/dL (32-36); Mean Corpuscular Volume 91.4 fL (80-100); Mean Platelet Volume 10.5 fL (7.4-10.4); Monocytes # (auto) 1.12 K/uL (0.11-0.59); Monocytes % (auto) 11.3 %; Neutrophils # (auto) 6.78 K/uL (1.4-6.5); Neutrophils % (auto) 68.4 %; Platelet Count 248 K/uL (130-400); RDW Coefficient of Variation 14.6 % (11.5-14.5); RDW Standard Deviation 49.9 fL (36.4-46.3); Red Blood Count 4.54 M/uL (4.2-5.4); White Blood Count 9.92 K/uL (4.8-10.8)
[2020-06-27 07:15] LABS: BUN Creatinine Ratio 28.8 (10-20); Calcium 8.7 mg/dl (8.5-10.1); Creatinine Clr Calc Pharmacy 30.6 ml/min; Est GFR (African American) 55.8 ml/min; Est GFR (Non-African American) 48.2 ml/min
[2020-06-27] MEDS: ACETAMINOPHEN 325 MG TAB PO PRN ×2 (08:15→18:42)
[2020-06-27] MEDS: FUROSEMIDE 20 MG in SYRINGE 0 ML IV SCH (08:21)
[2020-06-27] MEDS: HEPARIN SOD 5,000 UNIT/0.5 ML VIAL SQ SCH ×2 (08:21→21:25)
[2020-06-27] MEDS: POTASSIUM CHLORIDE CRTAB 20 MEQ TABCR PO SCH (08:22)
[2020-06-27] MEDS: METOPROLOL SUCC 25MG EXT REL TAB PO SCH (08:22)
[2020-06-27] MEDS: SACUBITRIL-VALSARTAN 24-26 MG TAB PO SCH ×3 (10:21→21:22)
--- NOTE | 2020-06-27 11:04 | Hospitalist Progress Note ---
Date of Service June 27, 2020 Assessment & Plan (1) Dyspnea on exertion: Loly Levy is an 89 year-old female from [place] at [facility] w/ no significant PMHx who presented several wks of THACKER and orthopnea thought to be secondary to new-onset subacute HFrEF. Clinically, she has made progressive improvement since her arrival. Acute Hypoxic Respiratory Failure -- likely secondary to subacute HFrEF exacerbation - Clinically, patient reported several weeks of ongoing dyspnea on exertion, wet cough, and orthopnea; on arrival, did require 2L NC to maintain O2 saturations >90% - Work-up as per previous notes - Strongly suspect this is secondary to [id number] HFrEF, with a big component from severe - Improving from admission on diuresis -- no longer requiring supplemental O2 - Maintain SpO2 > 90-92% Subacute HFrEF -- LVEF 30-35% - Between symptoms, TTE findings and BNP > 35k on arrival, do suspect this is likely culprit for ongoing AHRF - LV systolic function is moderate to severely reduced (LVEF 30-35%). Grade II diastolic dysfunction. Mildly dilated L atrium. Severe calcific aortic stenosis. Moderate MR. - Cardiology consulted, appreciate insight and recommendations on further interventions - Discussed possibility of valvular intervention and possible catheterization - Patient interested in learning more about TAVR, specifically at [facility] -- however still unsure - Will require catheterization non-urgently to r/o possible ischemic contribution - Hold Entresto b.i.d. given softer BPs 06/25- -- reinitiate s/p diuresis - Continue metoprolol - Lasix 20mg IV qAM -- monitor renal function, I+Os - Consider establishing with CHF clinic upon d/c Severe Aortic Stenosis -- moderate mitral regurgitation also noted on echocardiography - Noted on echo, murmur on physical exam - Noted in regards to preload dependence, ongoing diuresis - Thorough discussion with patient 0520 AM regarding goals of care with regards to this. Understands role of TAVR, cath; suspect a large part of her ongoing fatigue is likely secondary to her at this point. She will discuss with her nieces tomorrow and decide if she would like to pursue medical only vs. +procedural route too. Elevated Troponin -- suspect secondary to demand ischemia - Troponin: 0.1->0.112->0.104 -- no longer trending - EKG without signs of ischemia, although poor quality; +RBBB is technically new since 2012 ECG - Echo as above -- no regional deficits - Denying any signs or symptoms of chest pain throughout illness, at present - Suspect in setting of subacute HFrEF exacerbation, AHRF this is d/t demand ischemia Diet: Low sodium, fluid restrict DVT ppx: Heparin 5000 units SQ BID Dispo: Med/Surg with tele Code: DNR/DNI (2) Pulmonary edema: (3) Elevated troponin: (4) Transaminitis: (5) Elevated serum creatinine: (6) Diastolic CHF: (7) Acute exacerbation of CHF (congestive heart failure): (8) Severe aortic stenosis by prior echocardiogram: (9) Moderate mitral regurgitation by prior echocardiography: (10) Muscle cramping: Admission and Anticipated Discharge Date Admission Date: June 21, 2020 Supervising Physician Co-Signing Physician Notes Patient seen and examined with PGY-1 Dr. Reyes. Agree with history, exam findings, assessment and plan of care as outlined. 89 year old female with no past medical history admitted with new onset acute CHF exacerbation, found to have cardiomyopathy and severe aortic stenosis. Denies shortness of breath. Her nieces will be coming to see her tomorrow and they help her to make medical decisions. Oral mucosa and lips are dry. She is a bit dyspneic with talking. Moving air well on pulmonary exam, crackles at the bilateral bases. Systolic murmur over aortic area. + 1 pedal edema. 1. Acute hypoxic respiratory failure. Improving. Secondary to acute, new onset HFrEF. Echo with EF 30-35%, grade 2 diastolic dysfunction. Noted made of severe calcified aortic stenosis. Lasix 20mg AM, held Entresto due to low blood pressures and dizziness. Stopped fluid restriction--encouraged fluid intake today. 2. Aortic stenosis. May be a good candidate for TAVR. Even with diuresis, she may continue to have dyspnea secondary to severe that may impact her ability participate in activities she enjoys. Appreciate continued cardiology recommendations regarding timing of TAVR. 3. Elevated troponin. Peaked and downtrended. Likely demand ischemia. Dispo: pending clinical improvement. Appreciate PT recommendation for SNF. Subjective No acute events overnight. At the bedside this morning, patient did report a pain in her right upper quadrant extending to her back, that nursing did report made her tearful. Upon my arrival to the room, she said that the pain was present, but was resolving spontaneously. Says that this is been going on for several days, on and off. Describes it more of an ache. No nausea, appetite is fine. No chest pain, no shortness of breath. Oxygen saturations and blood pressures fine overnight. We did have quite an extensive discussion about her condition today, including her cardiac function, valve, and role of angiography. We discussed goals of care, and the different things she would like to achieve moving forward from a medical and personal perspective. She states that she would very much not like to return to the hospital time and time again for similar exacerbations; she further clarifies that she wants to be comfortable in doing her daily activities, and does not want to be an invalid. At the same time, she does note "if it is my time, it is my time." I did explain to her that I believe if she would like to proceed with a procedural route, sooner would likely be better than later. She agrees. She plans to discuss with her nieces tomorrow when they come to visit her, and will make a decision at that time based on family goals, and the patient's own goals of care. I did discuss that we will be her advocates regardless of the decision, and that we will use medical therapy either way to optimize her heart function and reduce symptoms to the best of our ability. Review of Systems Review of Systems: As per HPI Physical Exam Physical Exam: General: Patient seen first thing in morning. Somnolent, but does respond to questions. She appears moderately pale. Alert and oriented. HEENT: JVP appreciated ~1 finger breadths above the R clavicle. Cardiac: NRRR. S1/S2 present with grade 2/6 NUVIA at the RUSB, otherwise no rubs or gallops. Unchanged Respiratory exam: Mildly increased respiratory effort. Lungs demonstrating mild crackles, R > L. Compared to previous exams, I do believe this is very mildly improved. Abdominal: NABS. No rashes. Abdomen is soft/nontender/nondistended. Guerrero's negative. No flank pain. Extremities: 1+ peripheral edema in the lower extremities bilaterally. Good perfusion Results & Data Results & Data ([facility]) Vital Signs (Past 12 Hours) Vital Signs Temp Pulse Resp BP BP Pulse Ox 06/27/20 08:12 36.7 C 94 H 18 122/77 95 06/26/20 23:07 37.0 C 87 18 102/61 94 Resident Activity Tracking Resident Involvement: Resident Care Provided Care Provided: Adult Hospital Medicine (1) Pulmonary edema Chronicity: acute Qualified Code(s): J81.0 - Acute pulmonary edema
[2020-06-28] MEDS ORDERED: KETOROLAC TROMETHAMINE 15 MG/ML VIAL IV ONE (06:25)
[2020-06-28 07:16] LABS: Albumin Globulin Ratio 0.7 (0.9-2); Albumin Level 2.5 gm/dl (3.4-5.0); BUN Creatinine Ratio 28.7 (10-20); Bilirubin,Total 0.7 mg/dl (0.2-1); Calcium 8.9 mg/dl (8.5-10.1); Creatinine Clr Calc Pharmacy 30.3 ml/min; Est GFR (African American) 55.2 ml/min; Est GFR (Non-African American) 47.6 ml/min; Globulin 3.7 gm/dl (2.5-4.0); Total Protein 6.2 gm/dl (6.4-8.2)
[2020-06-28] MEDS: POTASSIUM CHLORIDE CRTAB 20 MEQ TABCR PO SCH (08:23)
[2020-06-28] MEDS: METOPROLOL SUCC 25MG EXT REL TAB PO SCH (08:23)
[2020-06-28] MEDS: SACUBITRIL-VALSARTAN 24-26 MG TAB PO SCH ×2 (08:23→21:50)
[2020-06-28] MEDS: FUROSEMIDE 20 MG in SYRINGE 0 ML IV SCH (08:24)
[2020-06-28] MEDS: HEPARIN SOD 5,000 UNIT/0.5 ML VIAL SQ SCH ×2 (08:24→21:00)
[2020-06-28 08:45] LABS: Potassium 4.7 mmol/L (3.5-5.1)
[2020-06-28] MEDS ORDERED: FUROSEMIDE 20 MG in SYRINGE 0 ML IV SCH (09:00)
--- NOTE | 2020-06-28 17:06 | Cardiology Progress Note ---
Date of Service June 28, 2020 Assessment & Plan (1) CHF (congestive heart failure): Symptomatic we improved. Difficult to know how well her diuresis has gone as I do not believe her intake and outputs are accurate. Provided she is ambulatory with minimal dyspnea, I think would be safe to discharge her with continued evaluation in the outpatient setting. I would continue her beta- scott and oral diuretic at the time of discharge. She was mildly hypotensive yesterday on Entresto. I would have a low threshold for discontinuing Entresto. (2) Severe aortic stenosis by prior echocardiogram: She has severe aortic stenosis. I discussed her options with her and her niece today. They would like a referral to [facility] to discuss the procedure and get a better understanding of the evaluation and recovery. It would prefer that this is done remotely as they have some concerns about traveling all the way to [facility]. I will place the appropriate consult and they will be contacted directly by the cardiology department at [place]. (3) Elevated troponin: Likely related to her heart failure. Possibly related to her valvular heart disease. No acute coronary syndrome. (4) Moderate mitral regurgitation: This could complicate her options for aortic valve replacement. However, moderate mitral regurgitation I do not believe is a contraindication to a trans aortic valve replacement. (5) Cardiomyopathy: Unclear etiology. She will need a cardiac cath (right and left). Also AGUSTIN at some point. She has been started on some medical therapy. I would be cautious about over medicating her in the setting of severe aortic stenosis. Again, I would have a low threshold for discontinuing Entresto for persistent dizziness or hypotension. Admission and Anticipated Discharge Date Admission Date: June 21, 2020 Subjective This afternoon the patient claims to be feeling well. She reports ambulating with physical therapy. She has some dyspnea, but much improved since admission. No chest pain. Review of Systems Review of Systems: Per HPI Physical Exam Physical Exam: She is alert and oriented x3. Mood affect appear normal. She answered all questions appropriately. HEENT: Sclerae are anicteric. Pupils are equal and reactive to light and accommodation. Extraocular movements were intact. Neuro: Cranial nerves intact Lungs: Normal respiratory effort Cardiac: Normal rhythm and rate. Crescendo systolic murmur. Extremities: Patient has bilateral radial pulses that are equal in intensity. There is no evidence cyanosis or clubbing. Moderate lower extremity edema Skin: There are no rashes noted on examination today. Results & Data ([facility]) Vital Signs (Past 12 Hours) Vital Signs Temp Pulse Pulse Resp BP BP Pulse Ox 06/28/20 15:49 36.7 C 83 18 127/74 91 06/28/20 13:48 06/28/20 10:55 36.7 C 80 16 108/72 96 06/28/20 07:18 36.7 C 83 16 120/60 96 Pulse Ox 06/28/20 15:49 06/28/20 13:48 98 06/28/20 10:55 06/28/20 07:18 Laboratory Results Abnormal Lab Results 06/28/20 05:54 Sodium 138 Potassium 4.7 D Chloride 107 Carbon Dioxide 27 Anion Gap 4.0 BUN 30 H Creatinine 1.04 Est Cr Clr Drug Dosing 30.3 Est GFR ( Amer) 55.2 Est GFR (Non-Af Amer) 47.6 BUN/Creatinine Ratio 28.7 H Glucose 95 Calcium 8.9 Total Bilirubin 0.7 AST 25 ALT 39 Alkaline Phosphatase 81 Total Protein 6.2 L Albumin 2.5 L Globulin 3.7 Albumin/Globulin Ratio 0.7 L Diagnostic Findings A chest x-ray and a chest CTA were performed at the time of admission both which suggested pulmonary edema. Echocardiogram performed on 06/22/2020 revealed an ejection fraction of 30 35%. Stage II diastolic dysfunction. Mild left atrial dilation. Severe calcific aortic stenosis with moderate mitral regurgitation. PG Care Time/CCT Total # of Minutes Spent Total Time Spent with Patient: Total time spent is greater than 50% in coordination of care (as documented) at patient's floor/unit and/or counseling patient: Coding Level of Care Code 49535 Subseq Hosp Care Lvl 2 Diagnoses CHF (congestive heart failure) I50.9 Heart failure chronicity: acute Heart failure type: unspecified Severe aortic stenosis by prior echocardiogram I35.0 Elevated troponin R77.8 Moderate mitral regurgitation I34.0 Cardiomyopathy I42.9 (1) CHF (congestive heart failure) Heart failure chronicity: acute Heart failure type: unspecified Qualified Code(s): I50.9 - Heart failure, unspecified
--- NOTE | 2020-06-28 17:34 | Hospitalist Progress Note ---
Date of Service June 28, 2020 Assessment & Plan (1) Dyspnea on exertion: Loly Levy is an 89 year-old female from [place] at [facility] w/ no significant PMHx who presented several wks of THACKER and orthopnea thought to be secondary to new-onset subacute HFrEF. Clinically, she has made progressive improvement since her arrival. Acute Hypoxic Respiratory Failure -- likely secondary to subacute HFrEF exacerbation - Strongly suspect this is secondary to [id number] HFrEF, with a big component from severe - Improved from admission on diuresis -- no longer requiring supplemental O2 - Maintain SpO2 > 90-92% Subacute HFrEF -- LVEF 30-35% - Between symptoms, TTE findings and BNP > 35k on arrival, do suspect this is likely culprit for ongoing AHRF - LV systolic function is moderate to severely reduced (LVEF 30-35%). Grade II diastolic dysfunction. Mildly dilated L atrium. Severe calcific aortic stenosis. Moderate MR. - Cardiology consulted, appreciate insight and recommendations on further interventions - Discussed possibility of valvular intervention and possible catheterization - After thorough discussion today with cardiology, patient is amenable to proceeding with TAVR and other forms of work-up required to pursue possible valve replacement - Cardiology to directly contact [facility] to help arrange - OK for continued outpatient management so long as not significantly THACKER - Continue Entresto. If HoTN or symptomatic (orthostatic), low threshold to d/c - Continue metoprolol - Lasix 20mg IV qAM -- monitor renal function, I+Os - Consider establishing with CHF clinic upon d/c Severe Aortic Stenosis -- moderate mitral regurgitation also noted on echocardiography - Noted on echo, murmur on physical exam - Noted in regards to preload dependence, ongoing diuresis - As above Elevated Troponin -- suspect secondary to demand ischemia - Troponin: 0.1->0.112->0.104 -- no longer trending - EKG without signs of ischemia, although poor quality; +RBBB is technically new since 2011 ECG - Echo as above -- no regional deficits - Denying any signs or symptoms of chest pain throughout illness, at present - Suspect in setting of subacute HFrEF exacerbation, AHRF this is d/t demand ischemia Diet: Low sodium, fluid restrict DVT ppx: Heparin 5000 units SQ BID Dispo: Med/Surg with tele Code: DNR/DNI (2) Pulmonary edema: (3) Elevated troponin: (4) Transaminitis: (5) Elevated serum creatinine: (6) Diastolic CHF: (7) Acute exacerbation of CHF (congestive heart failure): (8) Severe aortic stenosis by prior echocardiogram: (9) Moderate mitral regurgitation by prior echocardiography: (10) Muscle cramping: Admission and Anticipated Discharge Date Admission Date: June 21, 2020 Supervising Physician Co-Signing Physician Notes Attending attestation Pt seen and examined in concert with Dr. Reyes. In agreement with the documented findings as noted in the resident documentation with any exceptions or additions as noted here. Considerable improvement in presenting SOB excepting persistence with exertion. On examination, S1/S2 nl RRR, 2/6 NUVIA. Decreased BS at bases with faint rales bilaterally. trace b/l LE edema to the midshin. Abd NT/ND BS+ve Aortic stenosis - TAVR candidate, will transition to Atrium and then follow up as outpatient for same Acute hypoxic respiratory failure in the setting of new onset HFrEF w/ EF 30-35% and severe aortic stenosis - tolerating furosemide 20mg daily Else see resident documentation as noted. Total time spent with this patient including evaluation, management and extensive counseling regardng course of care, impact of TAVR, elements of management of aortic stenosis and evaluation proposed by cardiology: 40 minutes. Subjective Feeling well this morning. No shortness of breath. No chest pain. Eager to talk with her nieces about the plan today. Otherwise no concerns from her perspective, abdominal pain is absent this morning. Review of Systems Review of Systems: As per HPI Physical Exam Physical Exam: General: Patient seen first thing in morning. Somnolent, but does respond to questions. She appears moderately pale. Alert and oriented. Cardiac: NRRR. S1/S2 present with grade 2/6 NUVIA at the RUSB, otherwise no rubs or gallops. Unchanged Respiratory exam: Mildly increased respiratory effort. Lungs demonstrating mild crackles, R > L still but better than yesterday's exam Abdominal: NABS. No rashes. Abdomen is soft/nontender/nondistended. Guerrero's negative. No flank pain. Extremities: 1+ peripheral edema in the lower extremities bilaterally. Good perfusion Results & Data Results & Data ([facility]) Vital Signs (Past 12 Hours) Vital Signs Temp Pulse Pulse Resp BP BP Pulse Ox 06/28/20 15:49 36.7 C 83 18 127/74 91 06/28/20 13:48 06/28/20 10:55 36.7 C 80 16 108/72 96 06/28/20 07:18 36.7 C 83 16 120/60 96 Pulse Ox 06/28/20 15:49 06/28/20 13:48 98 06/28/20 10:55 06/28/20 07:18 Resident Activity Tracking Resident Involvement: Resident Care Provided Care Provided: Adult Hospital Medicine (1) Pulmonary edema Chronicity: acute Qualified Code(s): J81.0 - Acute pulmonary edema
[2020-06-29] MEDS ORDERED: MoRPHine SULFATE 2 MG/ML CARP IV PRN (03:02)
[2020-06-29] MEDS ORDERED: NITROGLYCERIN SL 0.4 MG/TAB TAB SL PRN (03:02)
--- NOTE | 2020-06-29 03:06 | Communication Note ---
Date of Service: June 29, 2020 Called by bedside nursing for concerns of anterior/right sided chest pain. EKG and Troponins ordered. Upon presentation to bedside, patient undergoing EKG [facility][note 3] demonstrates maintained RBBB, with no apparent acute changes as compared to EKG from 06/22. Palpable chest wall tenderness over right intercostal space/parasternal border. Given persistent cough and cardiac history ordered chest x-ray. Given reproducible/palpable chest wall pain without radiation or dyspnea discussed utilization of topical Voltaren gel for relief of pain. Addition of Nitro-Bid PRN, and IV morphine PRN. Will await troponin and chest x-ray for further management. Resident Activity Tracking Resident Involvement: Resident Care Provided Care Provided: Adult Hospital Medicine
[2020-06-29] MEDS: DICLOFENAC SOD 1% GEL 100 GM TUBE EXT SCH ×3 (05:22→12:45)
--- NOTE | 2020-06-29 08:35 | XRay Report ---
XR chest 1V portable HISTORY: 89 years-old Female chest pain acute atypical chest pain COMPARISON: Chest radiograph and CTA chest 06/21/2020 TECHNIQUE: Portable AP view of the chest FINDINGS: The cardiac silhouette is enlarged. Calcified plaque of the thoracic aorta. Chronic interstitial coar sening with linear bibasilar opacities. There is improved aeration of the left lung base from compari son. Trace pleural effusions. Pulmonary vascular congestion. Degenerative changes of the shoulders an d spine. IMPRESSION: 1. Cardiomegaly with pulmonary vascular congestion. 2. Trace pleural effusions with mild bibasilar opacities suggestive of atelectasis. Pneumonitis consi dered less likely. ACT 112: Negative or not required by law. The above report was generated using voice recognition software. It may contain grammatical, syntax o r spelling errors. Electronically signed by: Macario Vela M.D. 06/29/2020 8:33 AM
[2020-06-29] MEDS: POTASSIUM CHLORIDE CRTAB 20 MEQ TABCR PO SCH (08:43)
[2020-06-29] MEDS: SACUBITRIL-VALSARTAN 24-26 MG TAB PO SCH (08:44)
[2020-06-29] MEDS: METOPROLOL SUCC 25MG EXT REL TAB PO SCH (08:44)
[2020-06-29] MEDS: HEPARIN SOD 5,000 UNIT/0.5 ML VIAL SQ SCH (08:47)
[2020-06-29] MEDS ORDERED: FUROSEMIDE 30 MG in SYRINGE 0 ML IV SCH (09:00)
[2020-06-29 10:18] LABS: BUN Creatinine Ratio 24.8 (10-20); Calcium 9.2 mg/dl (8.5-10.1); Creatinine Clr Calc Pharmacy 28.7 ml/min; Est GFR (African American) 51.5 ml/min; Est GFR (Non-African American) 44.5 ml/min
[2020-06-29 10:21] LABS: Troponin I 0.058 ng/ml (0-0.045)
--- NOTE | 2020-06-29 15:01 | Discharge Summary ---
Date of Service June 29, 2020 Admission HPI Per Admitting Provider Mrs. Levy is an otherwise healthy 89 yo woman who was referred to the [facility] Emergency Department by a provider at a local [facility] clinic, where she initially presented earlier today for evaluation dyspnea on exertion. Mrs. Levy states for the past several weeks, she has noticed she has become winded when walking - a notable change from her baseline. She denies any associated chest pain. She has also developed a wet cough, but denies any general malaise, fevers/chills, sore throat, or GI symptoms. When asked if her symptoms are positional, she admits to becoming uncomfortable when laying flat. She has been sleeping propped up for the past several weeks. When discussing dietary habits, she says she occasionally cooks with salt, although she never adds salt to her food after it is made. She does consume canned soup, rafaela sauce in a jar, bottled salad dressings, and lebanon baloney. Yesterday, she ordered two supreme tacos from [employer] for lunch. She has no history of underlying cardiac or pulmonary disease. She followed with a family physician in the past, but has not been seen by a doctor in several years. She takes no medications. Family History: Sister: CHF, stroke. Brother: CHF, [place] Social Hx: No tobacco use in lifetime. No Etoh use. She lives at the [facility]. Closest family appears to be niece (who lives in the [place] area). In the ED, patient was afebrile and mildly tachycardic. Her WBC was mildly elevated to 10.8 with neutrophil predom. Her Hgb was normal. Electrolytes were normal. Creatinine 1.72 (baseline unknown), BUN at 32. Trop elevated to 0.1. BNP elevated > 35,000. Lipase not elevated. ALT at 99, AST at 44. EKG showing no evidence of acute ST segment changes. Chest CTA showing no evidence of PE; moderate pulmonary edema and cardiomegaly. She was given 500cc normal saline bolus, followed by 20mg IV lasix. Patient was placed on BiPAP Admission Exam Per Admitting Provider Constitutional: WD/WN, vitals as above cooperative; no acute distress Eyes: + anicteric sclerae ENMT: external ear and nose normal, oropharynx normal Neck: normal visual inspection and trachea midline Respiratory: normal respiratory effort and + cough; no respiratory distress and no labored breathing Auscultation: + rales (bilateral bases); no wheezes Cardiovascular: Rate/Rhythm: regular rate and regular rhythm Heart Sounds: normal S1 and normal S2 Vessels: + JVD Extremities: + pedal edema Gastrointestinal (Abdomen): normal bowel sounds, soft, nontender, no hepatosplenomegaly Skin: no rashes, warm and dry Psychiatric: A+Ox3, euthymic affect Genitourinary: Pure Wick catheter in place Principal Diagnosis HFrEF severe Discharge Exam General: Tired-appearing, feeling overwhelmed. Sitting in her chair, breathing comfortably. Somewhat confused, but A+Ox3. Cardiac: NRRR. S1/S2 present with grade 2/6 NUVIA at the RUSB, otherwise no rubs or gallops. Unchanged Respiratory exam: Mildly increased respiratory effort. Lungs demonstrating mild crackles, R > L - improved overall throughout the week Abdominal: Abdomen is soft/nontender/nondistended. No flank pain. MSK: Palpation in the intercostal spaces at the R midaxillary line does reveal TTP. Extremities: 1+ peripheral edema in the lower extremities bilaterally. Good perfusion Discharge Data Allergies Allergy/AdvReac Type Severity Reaction Status Date / Time No Known Allergies Verified 06/21/20 17:37 Consultations Cardiology Consult (06/28) -- Attending Senior Operations Analyst: Garret Wilde MD "Assessment & Plan (1) CHF (congestive heart failure): Symptomatic we improved. Difficult to know how well her diuresis has gone as I do not believe her intake and outputs are accurate. Provided she is ambulatory with minimal dyspnea, I think would be safe to discharge her with continued evaluation in the outpatient setting. I would continue her beta- scott and oral diuretic at the time of discharge. She was mildly hypotensive yesterday on Entresto. I would have a low threshold for discontinuing Entresto. (2) Severe aortic stenosis by prior echocardiogram: She has severe aortic stenosis. I discussed her options with her and her niece today. They would like a referral to [facility] to discuss the procedure and get a better understanding of the evaluation and recovery. It would prefer that this is done remotely as they have some concerns about traveling all the way to [facility]. I will place the appropriate consult and they will be contacted directly by the cardiology department at [place]. (3) Elevated troponin: Likely related to her heart failure. Possibly related to her valvular heart disease. No acute coronary syndrome. (4) Moderate mitral regurgitation: This could complicate her options for aortic valve replacement. However, moderate mitral regurgitation I do not believe is a contraindication to a trans aortic valve replacement. (5) Cardiomyopathy: Unclear etiology. She will need a cardiac cath (right and left). Also AGUSTIN at some point. She has been started on some medical therapy. I would be cautious about over medicating her in the setting of severe aortic stenosis. Again, I would have a low threshold for discontinuing Entresto for persistent dizziness or hypotension. " Ordered Studies (06/29) XR chest 1V portable HISTORY: 89 years-old Female chest pain acute atypical chest pain COMPARISON: Chest radiograph and CTA chest 06/21/2020 TECHNIQUE: Portable AP view of the chest FINDINGS: The cardiac silhouette is enlarged. Calcified plaque of the thoracic aorta. Chronic interstitial coarsening with linear bibasilar opacities. There is improved aeration of the left lung base from comparison. Trace pleural effusions. Pulmonary vascular congestion. Degenerative changes of the shoulders and spine. IMPRESSION: 1. Cardiomegaly with pulmonary vascular congestion. 2. Trace pleural effusions with mild bibasilar opacities suggestive of atelectasis. Pneumonitis considered less likely. (06/21) CT ANGIOGRAPHY OF THE CHEST, PULMONARY EMBOLUS PROTOCOL CLINICAL HISTORY: Shortness of breath. Evaluate for pulmonary embolus. COMPARISON STUDY: Chest radiograph performed earlier today. TECHNIQUE: Following IV administration of 108 mL of Optiray, helical axial images of the chest were obtained utilizing the pulmonary embolus protocol. Maximal intensity projections and sagittal and coronal reformats were viewed on an independent 3D workstation. IV contrast was administered without complication. Automated exposure control was utilized for the study. A dose lowering technique was utilized adhering to the principles of ALARA. CT DOSE: 410.08 mGy.cm FINDINGS: No pulmonary emboli are identified. Moderate cardiomegaly is noted. There is mitral annular and aortic valvular calcification. Small left and trace right pleural effusions are noted. Bilateral lower lobe opacities favor atelectasis. There is no pneumothorax. Interlobular septal thickening represents pulmonary edema. There are additional groundglass opacities. Mildly enlarged mediastinal lymph nodes are noted. There is a cyst suspected sebaceous cyst of the chest wall. Incidental note is made of several suspected thyroid nodules that measure up to 2.2 cm. There is reflux of contrast into the IVC and hepatic veins. IMPRESSION: 1. No pulmonary emboli identified. 2. Findings consistent with moderate pulmonary edema. Small left and trace right pleural effusions. 3. Cardiomegaly. 4. Several mildly enlarged mediastinal lymph nodes which are nonspecific. Hospital Course (1) Dyspnea on exertion: Loly Levy is an 89 year-old female from [place] at [facility] w/ no significant PMHx who presented several wks of THACKER and orthopnea secondary to new-onset subacute HFrEF and severe . Clinically, she has made progressive improvement since her arrival. Acute Hypoxic Respiratory Failure -- secondary to subacute HFrEF exacerbation - Strongly suspect this is secondary to [id number] HFrEF, with a big component from severe - Improved from admission on diuresis -- did not require supplemental O2 several days prior to d/c Subacute HFrEF -- LVEF 30-35% - Between symptoms, TTE findings and BNP > 35k on arrival, do suspect this is likely culprit for ongoing AHRF - LV systolic function is moderate to severely reduced (LVEF 30-35%). Grade II diastolic dysfunction. Mildly dilated L atrium. Severe calcific aortic stenosis. Moderate MR. - Cardiology consulted, appreciate insight and recommendations on further interventions - After thorough discussion with cardiology, patient is amenable to proceeding with TAVR and other forms of work-up required to pursue possible valve replacement (e.g., cath, AGUSTIN) - Cardiology to directly contact [facility] to help arrange for appointment MARIZA ([facility] [place]) upon d/c - Continue Entresto. If HoTN or symptomatic (orthostatic), low threshold to d/c - Continue metoprolol - Received Lasix 20-60mg IV qAM while here --> discharged with Lasix 40mg PO daily - Recommend checking BMP in one week to assess K, renal function Severe Aortic Stenosis -- moderate mitral regurgitation also noted on echocardiography - Noted on echo, murmur on physical exam - Noted in regards to preload dependence, ongoing diuresis - As above -- evaluate for TAVR via [facility] Elevated Troponin -- suspect secondary to demand ischemia - Troponin: 0.1->0.112->0.104 in first days of admission - EKG without signs of ischemia, although poor quality; +RBBB is technically new since 2011 ECG - Echo as above -- no regional deficits - Denying any signs or symptoms of chest pain throughout illness, at present - Suspect in setting of subacute HFrEF exacerbation, AHRF this is d/t demand ischemia Costochondritis / MSK Chest Pain - Patient reporting R midaxillary chest-wall pain that is reproducable on examination - ECG, troponin taken night in which this was severe revealed no new conduction/repolarization abnormalities, troponin actually lower than it was on arrival - Suspect 2/2 MSK cause, perhaps due to recent coughing in setting of subacute HFrEF - Voltarin gel - Icing Code: DNR/DNI (2) Pulmonary edema: (3) Elevated troponin: (4) Transaminitis: (5) Elevated serum creatinine: (6) Diastolic CHF: (7) Acute exacerbation of CHF (congestive heart failure): (8) Severe aortic stenosis by prior echocardiogram: (9) Moderate mitral regurgitation by prior echocardiography: (10) Muscle cramping: Total Time Total Time Spent Total Time Spent (In Minutes): 40 Discharge Plan Discharge Items Patient Disposition: Transfer Snf Fac Reason For Visit: DYSPNEA ON EXERTION Discharge Diagnosis: heart failure with reduced ejection fraction severe Activity: Per Instructions section Non-emergency contact: Primary Care Provider and Senior Operations Analyst Call non-emergency contact if: you have any medication questions, your symptoms worsen, your pain is unusual for you and your temperature is above 101 Follow-up/Referrals: Jose Garcia [Primary Care Provider] - Diet: Heart Healthy Addtl Attending Provider Instructions: You were seen at [facility] for evaluation of shortness of breath. During your stay here, you underwent several tests to determine the cause of your symptoms. You were found to have reduced heart function, likely from a dysfunctional valve in your heart. When the heart's function is not normal, fluid can build up in parts of the body before the heart -- such as the lungs and legs, creating feelings of shortness of breath and swollen legs respectively. You were started on medications to optimize your heart's function and clear some of this fluid. You will continue some of these medications upon discharge. You were also seen by cardiology, who recommended considering evaluation for possibility of valve replacement to reduce stress on your heart (as well as reduced heart function symptoms). It is extremely important that you follow up with [facility] [place] to further discuss possibility for valve replacement. Our cardiologists have reached out to [place] to help arrange an appointment for you. If you do not hear about an appointment by Wednesday, please call to inquire. The cardiologists at [place] will help you plan any tests / procedures that may be required before a valve replacement, as they deem necessary / appropriate / possible. Please follow-up with your PCP in 1 week to review this visit. In the interim, if you experience any worsening shortness of breath, lightheadedness/dizziness, feeling like you're going to pass out, worsening chest pain related to walking around or in general, fevers, chills, sweats, nausea, vomiting, or other worrisome symptoms, please seek medical attention; if your symptoms are serious, call 911 or report to the nearest ER for evaluation. Please note the following medication changes / additions to continue upon discharge: - Lasix 40mg, daily in the morning, until directed otherwise by your PCP or child psychology teacher (this is a diuretic and removes excess fluid) - Entresto, twice daily -- if you get lightheaded/dizzy while walking around, please inform your PCP as this medication lowers blood pressure - Metoprolol 12.5mg daily -- optimizes heart function - Voltarin gel as needed for chest wall pain We wish you all the best in your recovery. It cervantes been a pleasure taking care of you while here. Bo Reyes MD [facility] [address], [address] [place], [place] Pending Studies at Discharge: No Stand-Alone Forms: My [facility] Skilled Items Patient informed of condition?: Yes DNR: Yes Discharge Level of Care: Acute rehab Communicable Disease: No Discharge Prognosis: Improving Lines: None Urinary Catheter: No Medications and DC Order Prescriptions: New furosemide 40 mg tablet 40 mg PO DAILY Qty: 30 RF: 1 metoprolol succinate 25 mg Tablet Extended Release 24 Hr 12.5 mg PO QAM 30 Days Qty: 15 RF: 1 Entresto 24-26 mg Tablet 1 tab PO BID 30 Days Qty: 60 RF: 1 diclofenac sodium [Voltaren] 1 % Gel 2 g EXT Q4H 14 Days Qty: 2 RF: 0 No Action No Known Home Medications RF: 0 Discharge Orders: Discharge Order (Routine); Ordered 06/29/20 Ordered By: Bo Schreiber/Other Patient Handouts: Heart Valve Problems: Aortic Stenosis, Coping with Heart Failure, Eating Heart-Healthy Foods Admission Data Admit Date/Time: 06/21/20 23:37 Attending Provider: Clarence Dueñas Admit Provider: Gina Pickard Primary Care Provider: Jose Garcia Other Providers: Brandon Beckett ; Clarence Wilde Supervising Physician Co-Signing Physician Notes Attending attestation Pt seen and examined in concert with Dr. Reyes. In agreement with the documented findings as noted in the resident documentation with any exceptions or additions as noted here. Resting comfortably in bed, tolerating brief courses of ambulation. On examination, S1/S2 nl RRR, 2/6 NUVIA. Decreased BS at bases with faint rales bilaterally. trace b/l LE edema to the midshin. Abd NT/ND BS+ve Aortic stenosis - TAVR candidate, will transition to [facility] and then follow up as outpatient for same per cardiology Acute hypoxic respiratory failure in the setting of new onset HFrEF w/ EF 30-35% and severe aortic stenosis - furosemide 40mg daily Else see resident documentation as noted. Total attending time spent with this case on the day of discharge: 35 minutes. Resident Activity Tracking Resident Involvement: Resident Care Provided Care Provided: Adult Hospital Medicine
--- NOTE | 2020-06-30 00:20 | Electrocardiogram Report ---
Test Reason : Blood Pressure : / mmHG Vent. Rate : 082 BPM Atrial Rate : 082 BPM P-R Int : 150 ms QRS Dur : 112 ms QT Int : 390 ms P-R-T Axes : 064 027 059 degrees QTc Int : 455 ms Normal sinus rhythm Right bundle branch block Abnormal ECG When compared with ECG of 21-JUN-2020 16:51, Premature ventricular complexes are no longer Present Nonspecific T wave abnormality no longer evident in Inferior leads Confirmed by Mario Rocha ([id number]) on 06/30/2020 12:20:01 AM Referred By: [facility] Confirmed By:Mario Rocha
== END 2020-06-29 16:15 | DRG 291 ==
LOC: ED 15:54 → 2N 23:37 → SUATTDRO 23:37 → 2N 06-22 01:22
DX: I08.0 Rheumatic disorders of both mitral and aortic valves; Z66 Do not resuscitate; N17.9 Acute kidney failure, unspecified; J96.01 Acute respiratory failure with hypoxia; M94.0 Chondrocostal junction syndrome [Tietze]; I42.9 Cardiomyopathy, unspecified; I24.8 Other forms of acute ischemic heart disease; I50.21 Acute systolic (congestive) heart failure; R74.01 Elevation of levels of liver transaminase levels